=== PATIENT | male | born 1945 ===

== ENCOUNTER 2017-07-10 02:28 | Observation (INO) | payer OTHER ==
[2017-07-10] MEDS ORDERED: Albuterol/Ipratropium NEB.SOL* Albuterol 2.5 MG/Ipratropium 0.5 MG 3 ML INH ONE (02:33)
[2017-07-10] MEDS ORDERED: methylPREDNISolone 125 MG* 2 ML VIAL IV ONE (02:33)
[2017-07-10 03:07] LABS: PCO2 Arterial 36 mmHg (35-45)
[2017-07-10] MEDS ORDERED: Azithromycin IV(*) 500 MG in NS 0.9% 250 ML* 250 ML IVPB ONE (03:10)
[2017-07-10] MEDS ORDERED: cefTRIAXone(*) 1 GM in NS 0.9% 50 ML* 50 ML IVPB ONE (03:10)
[2017-07-10 03:30] LABS: Troponin I 0.03 ng/mL (<0.04)
[2017-07-10 03:34] LABS: ALT 16 U/L (7-52); Albumin 4.6 g/dL (3.2-5.2); Alkaline Phosphatase 75 U/L (34-104); Blood Urea Nitrogen 13 mg/dL (6-24); CO2 Carbon Dioxide 25 mmol/L (22-32); Calcium 9.7 mg/dL (8.6-10.3); Chloride 95 mmol/L (101-111); EGFR African American 120.1 (>60); EGFR Non-African American 93.4 (>60); Globulin 3.4 g/dL (2-4); Glucose 119 mg/dL (70-100); Magnesium 1.8 mg/dL (1.9-2.7); Sodium 131 mmol/L (133-145)
[2017-07-10 03:35] LABS: Anion Gap 11 mmol/L (2-11)
[2017-07-10] MEDS ORDERED: NS 0.9% 1000 ML* 1,000 ML IV SCH ×2 (04:15→09:15)
[2017-07-10 04:19] LABS: Hematocrit 36 % (42-52); Hemoglobin 12.5 g/dl (14.0-18.0); Mean Corpuscular HGB Conc 35 g/dl (31-36); Mean Corpuscular Hemoglobin 35 pg (27-31); Mean Corpuscular Volume 101 fL (80-94); Mean Platelet Volume 7 um3 (7.4-10.4); Red Cell Distribution Width 13 % (10.5-15); White Blood Count 6.4 10^3/ul (3.5-10.8)
[2017-07-10] MEDS ORDERED: Iohexol 350* (CONTRAST) 500 ML MDV IV ONE (04:30)
[2017-07-10] MEDS: NS 0.9% 1000 ML* 1,000 ML IV SCH ×2 (04:34→10:54)
--- NOTE | 2017-07-10 08:08 | RAD ---
HISTORY: Shortness of breath COMPARISONS: October 08, 2014 VIEWS: 1: frontal portable view of the chest at 2:47 AM FINDINGS: LINES AND TUBES: None. CARDIOMEDIASTINAL SILHOUETTE: The cardiomediastinal silhouette is normal for portable technique. PLEURA: The costophrenic angles are sharp. No pleural abnormalities are noted. LUNG PARENCHYMA: There is hyperinflation with advanced emphysematous change. ABDOMEN: The upper abdomen is clear. There is no subphrenic gas. BONES AND SOFT TISSUES: No bone or soft tissue abnormalities are noted. IMPRESSION: EMPHYSEMA. NO ACTIVE CARDIOPULMONARY DISEASE.
--- NOTE | 2017-07-10 08:27 | RAD ---
INDICATION: Difficulty breathing. Relevant surgical history includes left upper lobectomy. COMPARISON: None TECHNIQUE: Axial source images were acquired following the administration of 55 mL Omnipaque [address] angiographic technique. Coronal and sagittal reconstructed images were constructed and reviewed. FINDINGS: There there are no filling defects in the pulmonary arteries to indicate acute pulmonary embolic disease. The left lung is hypoplastic consistent with the patient's history of lobectomy. There is advanced diffuse centrilobular emphysematous changes. Along the dependent margin of the left lower lobe there is subpleural density with an appearance consistent with honeycombing. There is pleural-based density with air bronchograms along the lateral aspect of the right lung apex. There are no large or suspicious pulmonary nodules or masses. Reflux of intravenously injected contrast is seen in the hepatic veins indicating a degree of congestive heart failure. The heart is normal in size. There is no evidence of pericardial effusion. There is no evidence of aortic aneurysm or dissection. There is no mediastinal, hilar, or axillary lymphadenopathy. Multilevel degenerative changes of the thoracic spine includes loss of intervertebral disc height and marginal osteophyte formation. Limited views of the upper abdomen show no abnormalities. IMPRESSION: 1. No CT of evidence of pulmonary embolism. 2. Extensive chronic and postsurgical changes described in the body the report.
[2017-07-10] MEDS ORDERED: Al Hydrox/Mg Hydrox/Simet LIQ* 30 ML UDC PO PRN (09:14)
[2017-07-10] MEDS ORDERED: Ondansetron INJ* 2 MG/ML VIAL IV PRN (09:14)
[2017-07-10] MEDS ORDERED: Albuterol HFA INHALER* 8 gm MDI INH PRN (09:15)
[2017-07-10] MEDS ORDERED: Prochlorperazine TAB* 10 MG PO PRN (09:15)
[2017-07-10] MEDS ORDERED: cefTRIAXone(*) 1 GM in NS 0.9% 50 ML* 50 ML IVPB SCH (10:00)
[2017-07-10] MEDS: methylPREDNISolone SOD 40 MG* 1 ML VIAL IV SCH ×2 (10:54→21:22)
--- NOTE | 2017-07-10 13:43 | HP ---
CC: Dr. Palmer Friend; Radha Santillanhrie; Dr. Joann Quigley HISTORY AND PHYSICAL: DATE OF ADMISSION: 07/10/17 PRIMARY CARE PROVIDER: [facility]. The patient mentioned Estela Friend, nurse gertrudis sim from the practice as his PCP. The patient also has an oncologist named Dr. Joann Quigley from [place]. CHIEF COMPLAINT: Shortness of breath. HISTORY OF PRESENT ILLNESS: Mr. Barkley is a 71-year-old male who is currently undergoing chemothera py for throat cancer who presents to the hospital complaining of shortness of breath. The patient st ated that due to unknown infection diagnosed by his books binder, he had been on azithromycin for past year. He presents complaining of cough mostly nonproductive and shortness of breath. Now, he feels much better after Solu-Medrol infusion and nebulizer treatments here. He is going to be place d on overnight observation with a diagnosis of COPD exacerbation. PAST MEDICAL HISTORY: 1. COPD, on oxygen, when ambulating it is 2 L. 2. History of dyslipidemia. 3. History of hypertension. 4. History of throat cancer, status post radiation and chemo in 2015. Apparently, the tumor recurre d and now is encasing the right carotid artery. The patient currently is status post another radiati on treatment and undergoing another chemotherapy. 5. History of partial lumpectomy of the left upper lobe due to benign reasons. Further, the patient could not tell. 6. History of "a cyst" removed from his spine. MEDICATIONS: At home include: 1. Levothyroxine 50 mcg daily. 2. Xeloda 1000 mg b.i.d. 3. Spiriva inhaler 1 inhalation daily. 4. Zocor 20 mg daily. 5. Symbicort 160/4.5 one inhalation b.i.d. 6. Albuterol 2 puffs every 4 hours p.r.n. 7. Compazine 10 mg every 8 hours p.r.n. 8. Azithromycin 250 mg daily. 9. Albuterol inhaler 2.5 mg inhaled every 6 hours p.r.n. 10. Atenolol 50 mg daily. ALLERGIES: No known drug allergies. FAMILY HISTORY: The patient's mother had a history of throat cancer, at the age of 44. Father' s history is unknown. SOCIAL HISTORY: The patient has a history of [id number] smoking and quit smoking in 2009. He wilson es alcohol use. He is . His surrogate decision maker is his . He is independent with vt s activities of daily living. REVIEW OF SYSTEMS: Please see history of present illness. The patient stated that he lost 5 pounds in the past couple of months due to basically poor appetite. He has no problems with swallowing. He is on oxygen whenever he exercises. He told me that he had been on azithromycin for the past [address] Mccray's recommendation, but he could not tell me if he ever was diagnosed of an infection. All the remaining 12 systems were reviewed with the patient and were otherwise negative. PHYSICAL EXAMINATION GENERAL: This is a very pleasant 71-year-old male with a BMI of 17. The patient is in no acute dist ress. Alert, awake, and oriented x3. VITAL SIGNS: Blood pressure of 98/67, heart rate of 89 and regular, respiratory rate 20, oxygen satu ration 96% on room air, temperature 98.7. HEENT: Head: Atraumatic, normocephalic. Eyes: Pupils are equal, reactive to light and accommodati on. Oropharynx clear. Mucosa moist. NECK: Supple. No JVD. No bruits bilaterally. The patient has hardening of the skin and what appea rs to be a subcutaneous mass that is growing together with the skin at the right base of the neck. I t appears to be remnant after radiation treatment. RESPIRATORY: Coarse breath sounds bilaterally with bilateral scant wheezes. CARDIOVASCULAR: Regular rate and rhythm, no murmur. ABDOMEN: Soft, nontender. Bowel sounds are present in all 4 quadrants. EXTREMITIES: There is no edema. Pulses are +2 bilaterally. No clubbing or cyanosis. NEUROLOGIC: On neuro evaluation, speech is clear. Cranial nerves II through XII grossly intact. Mo tor strength is 5/5 bilaterally. LABORATORY DATA/DIAGNOSTIC STUDIES: Laboratory data and studies performed today include: CT angiogram of the chest obtained in the emergency department, impression: "No CT evidence of pulmo nary embolism. Extensive chronic postsurgical changes as described in the body of the report." Furt luke, it was noted that left lung is hyperplastic with the patient's history of lobectomy. There was advanced diffuse centrilobular emphysematous changes along with dependent margin of the left lowe r lobe. There is subpleural density with an appearance consistent with honeycombing. There is pleura l based density with air bronchograms around the lateral aspect of the right lung apex. There are no large suspicious pulmonary nodules or masses. Please also note that the report that was read by the [facility] radiologist noted 1.8 cm heterogenic right thyroid nodule, which is likely consistent with the patient's known malignancy. CBC showed white blood cell count 6.4, hemoglobin 12.5, hematocrit of 36, MCV of 101, and platelets o f 176,000. D-dimer was over 400. ABG shows pH of 7.4, pCO2 of 36, pO2 of 149, bicarb of 25. Sodium was 131, potassium of 3.5, chloride 95, carbon dioxide 25, BUN 13, creatinine 0.81. Liver fun ction tests were unremarkable. Magnesium was slightly low at 1.8. Troponin of 0.03. Lactic acid 1. 2. The patient's EKG showed sinus rhythm with heart rate of 189 beats per minute with PACs. The EKG is similar to the EKG from 2015, but the previous EKG had multiple PVCs. ASSESSMENT AND PLAN: 1. For chronic obstructive pulmonary disease exacerbation, the patient is going to be placed on Solu -Medrol as well as added ceftriaxone to his chronic azithromycin. 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 I will try to obt ain medical records from the patient's books binder. I suspect the patient will be able to go home in the morning on 07/11/17. 2. Please also note that the [facility] report of the patient's CT angiogram of the chest also noted air-fluid levels in the esophagus. The patient does have history of radiation to his throat. Due t o that, although the patient himself does not report history of problems with swallowing, I will orde r barium swallow. 3. The patient has a history of throat cancer and his Xeloda is going to be continued for chemothera py. 4. For DVT prophylaxis, the patient is going to be placed on heparin subcutaneously. 5. Code status is full and his surrogate is his . TIME SPENT: Approximately 62 minutes were spent on the patient's admission, more than half of that t sharon was spent [id number] with the patient doing the interview, physical exam. [id number]/CPS #: [id number]
[2017-07-10] MEDS: Albuterol 2.5 MG/3 ML NEB.SOL* (0.083%) INH PRN ×2 (15:13→21:31)
[2017-07-10] MEDS: Heparin VIAL(*) 5000 UNITS/ML VIAL (FIVE THOUSAND) SUBCUT SCH ×2 (15:36→21:26)
[2017-07-10] MEDS ORDERED: CAPECITABINE 500 MG PO SCH (17:00)
[2017-07-10] MEDS: CAPECITABINE 500 MG PO SCH (18:16)
--- NOTE | 2017-07-10 19:47 | ED ---
Sophie Canales Emily, scribed for Lamberto Carlson on 07/10/17 at 0247 . Shortness of Breath - HPI Summary HPI Summary: This patient is a 71 year old M BIBA to [facility] with a chief complaint of SOB that began 2 days ago. The patient rates the pain 3/10 in severity. Symptoms aggravated by nothing. Symptoms alleviated by nothing. Patient reports cough. Patient denies fever, CP, and leg edema. Pt is on 2 L of O2 at home. Pt currently has throat CA. - History of Current Complaint Chief Complaint: EDShortnessOfBreath Hx Obtained From: Patient Onset/Duration: Sudden Onset, Lasting Days, Still Present Current Severity: Mild Aggrevating Factors: Nothing Alleviating Factors: Nothing Associated Signs & Symptoms: Cough (Nonproductive) - Allergy/Home Medications Allergies/Adverse Reactions: Allergies Allergy/AdvReac Type Severity Reaction Status Date / Time No Known Allergies Allergy Verified 10/08/14 09:29 PMH/Surg Hx/FS Hx/Imm Hx Previously Healthy: No Cardiovascular History: Reports: Hx Hypercholesterolemia, Hx Hypertension Respiratory History: Reports: Hx Chronic Obstructive Pulmonary Disease (COPD) Sensory History: Reports: Hx Contacts or Glasses, Hx Hearing Problem - has hearing aids at home Opthamlomology History: Reports: Hx Contacts or Glasses - Surgical History Surgery Procedure, Year, and Place: left upper lobe lobectomy "3 years ago", cyst removed from spine Infectious Disease History: No Infectious Disease History: Denies: Traveled Outside the [place] in Last 30 Days - Family History Known Family History: Positive: None - Social History Occupation: Retired Lives: With Family Alcohol Use: None Substance Use Type: Reports: None Smoking Status (MU): Former Smoker Type: Cigarettes Amount Used/How Often: 1 ppd Review of Systems Negative: Fever Negative: Chest Pain Positive: Shortness Of Breath, Cough Negative: Edema All Other Systems Reviewed And Are Negative: Yes Physical Exam Triage Information Reviewed: Yes Vital Signs On Initial Exam: Initial Vitals Temp Pulse Resp BP Pulse Ox 99.2 F 88 20 143/79 100 07/10/17 02:37 07/10/17 02:37 07/10/17 02:37 07/10/17 02:37 07/10/17 02:37 Vital Signs Reviewed: Yes Appearance: Positive: Well-Appearing, No Pain Distress Skin: Positive: Warm, Skin Color Reflects Adequate Perfusion, Dry Head/Face: Positive: Normal Head/Face Inspection Eyes: Positive: EOMI, INÉS ENT: Positive: Normal ENT inspection Neck: Positive: Supple, Nontender Respiratory/Lung Sounds: Positive: Breath Sounds Present, Rhonchi - Bilateral Cardiovascular: Positive: RRR, Pulses are Symmetrical in both Upper and Lower Extremities Abdomen Description: Positive: Nontender, Soft Bowel Sounds: Positive: Present Musculoskeletal: Positive: Normal, Strength/ROM Intact Neurological: Positive: Normal, Sensory/Motor Intact, Alert, Oriented to Person Place, Time Psychiatric: Positive: Affect/Mood Appropriate Diagnostics - Vital Signs Vital Signs Temp Pulse Resp BP Pulse Ox 07/10/17 02:37 99.2 F 88 20 143/79 100 - Laboratory Result Diagrams: 07/10/17 03:53 07/10/17 03:53 Lab Statement: Any lab studies that have been ordered have been reviewed, and results considered in the medical decision making process. - Radiology CXR Radiology Interpretation Completed By: ED Physician - CXR reveals R lower lobe pneumonia and L lower lobe pneumonia with effusion. - CT CTA Chest CT Interpretation Completed By: Radiologist - CT CTA chest reveals, per radiologist, nodular scarring right upper and right lower lobes, advise follow up. Heterogeneous thyroid gland containing a 1.8 cm hypodense nodule in right lobe, correlate with ultrasound. No pulmonary embolism. No aortic dissection or aneurysm. No pneumonia or pleural effusions. Air and fluid in md/upper esophagus. Coronary artery disease. Cachexia. ED physician has reviewed this radiology report. Course/Dx - Course Assessment/Plan: This patient is a 71 year old M BIBA to [facility] with a chief complaint of SOB that began 2 days ago. Pt currently has throat CA. Physical Exam Findings. Bilateral rhonchi. CXR reveals R lower lobe pneumonia and L lower lobe pneumonia with effusion. CT CTA chest reveals, per radiologist, nodular scarring right upper and right lower lobes, advise follow up. Heterogeneous thyroid gland containing a 1.8 cm hypodense nodule in right lobe, correlate with ultrasound. No pulmonary embolism. No aortic dissection or aneurysm. No pneumonia or pleural effusions. Air and fluid in md/upper esophagus. Coronary artery disease. Cachexia. Bloodwork obtained. In the ED course the patient was given Duoneb, Omnipaque, Solu-MEDROL, fluids, Rocephin, and Zithromax. We discussed patient care with Dr. Kaiser and they recommended pt be admitted for further evaluation. The patient is agreeable with this plan. - Diagnoses Provider Diagnoses: COPD exacerbation - Physician Notifications Discussed Care of Patient With: Barbara Kaiser Time Discussed With Above Provider: 06:49 Instructed by Provider To: Other - Consult with Dr. Kaiser (hospitalist) at 0649. Agrees to admit pt for further observation. Discharge - Discharge Plan Condition: Stable Disposition: ADMITTED TO [facility] Referrals: No Primary Care Phys,NOPCP [Primary Care Provider] - The documentation as recorded by the Sophie head Emily accurately reflects the service I personally performed and the decisions made by , Lamberto Carlson.
[2017-07-11] MEDS: NS 0.9% 1000 ML* 1,000 ML IV SCH (04:07)
[2017-07-11] MEDS: Heparin VIAL(*) 5000 UNITS/ML VIAL (FIVE THOUSAND) SUBCUT SCH ×2 (05:54→13:50)
[2017-07-11] MEDS ORDERED: Levothyroxine TAB* 50 MCG TAB PO SCH (06:00)
[2017-07-11] MEDS: Albuterol 2.5 MG/3 ML NEB.SOL* (0.083%) INH PRN ×2 (06:06→14:21)
[2017-07-11 07:19] LABS: Hematocrit 30 % (42-52); Hemoglobin 10.7 g/dl (14.0-18.0); Mean Corpuscular HGB Conc 35 g/dl (31-36); Mean Corpuscular Hemoglobin 35 pg (27-31); Mean Corpuscular Volume 100 fL (80-94); Mean Platelet Volume 7 um3 (7.4-10.4); Red Blood Count 3.03 10^6/ul (4.0-5.4); Red Cell Distribution Width 13 % (10.5-15); White Blood Count 9.4 10^3/ul (3.5-10.8)
[2017-07-11 07:48] LABS: BUN/Creatinine Ratio 25.4 (8-20); Calcium 7.9 mg/dL (8.6-10.3); EGFR African American 173.2 (>60); EGFR Non-African American 134.7 (>60); Potassium 3.5 mmol/L (3.5-5.0)
[2017-07-11] MEDS: CAPECITABINE 500 MG PO SCH ×2 (08:44→11:49)
[2017-07-11] MEDS: Atenolol TAB* 50 MG PO SCH ×2 (08:44→15:28)
[2017-07-11] MEDS ORDERED: Spiriva Inhaler DEVICE* 1 EACH DEVICE INH ONE (09:00)
[2017-07-11] MEDS ORDERED: Tiotropium CAP.INH* CAP.INH/18 MCG (USE ORDER SET !) INH SCH (09:00)
[2017-07-11] MEDS ORDERED: Azithromycin TAB* 250 MG PO SCH (09:00)
[2017-07-11] MEDS ORDERED: cefTRIAXone(*) 1 GM in D5W 50 ML BAG* 50 ML IVPB SCH (10:00)
[2017-07-11] MEDS: methylPREDNISolone SOD 40 MG* 1 ML VIAL IV SCH (10:22)
--- NOTE | 2017-07-11 12:03 | RAD ---
HISTORY: Throat cancer, air fluid level and esophagus COMPARISONS: CT dated July 10, 2017 TECHNIQUE: A videofluoroscopic evaluation of swallow was performed in conjunction with speech therapy. Barium laced foods and liquids of varying consistency were administered under fluoroscopic observation. Total fluoroscopy time is 1.3 minutes. FINDINGS: ORAL PHASE: There is normal transfer and initiation PHARYNGEAL PHASE: There is normal elevation and retropulsion. There is blunting of the epiglottis consistent with a history of radiation therapy. ASPIRATION/PENETRATION: There is transient penetration with thin liquid barium on one swallow. There is no aspiration. OTHER FINDINGS: None. IMPRESSION: EVIDENCE OF PREVIOUS RADIATION THERAPY. TRANSIENT PENETRATION WITHOUT ASPIRATION.. PLEASE SEE THE SPEECH THERAPIST REPORT FOR FURTHER INFORMATION CPT II Codes: 6045F
[2017-07-11 16:57] VITALS: BP 106/62
--- NOTE | 2017-07-12 10:57 | DS ---
CC: Dr. Mccray; Dr. Joann Quigley; Estela Desir MD * DISCHARGE SUMMARY: DATE OF ADMISSION: 07/10/17 DATE OF DISCHARGE: 07/11/17 PRIMARY CARE PROVIDER: Estela Desir MD. SWEATER OPERATOR: Dr. Mccray. ONCOLOGIST: Dr. Joann Quigley. All the above providers are from [facility]. DISCHARGE DIAGNOSIS: Chronic obstructive pulmonary disease exacerbation. SECONDARY DIAGNOSES: 1. History of chronic obstructive pulmonary disease, on oxygen p.r.n. 2. Dyslipidemia. 3. History of hypertension. 4. History of throat cancer, status post radiation and chemo in 2016. Status post recurrence of tumor. Now the tumor is encasing the right carotid artery. The patient is status post radiation treatment and undergoing chemotherapy. 5. History of partial lobectomy of the left upper lobe due to a mass that turned out to have AFB testing positive on the nodule, but apparently cultures never grew anything. 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 6. History of a cyst removed from his spine. MEDICATIONS AT DISCHARGE: Include: 1. Levothyroxine 50 mcg daily. 2. Xeloda 1000 mg b.i.d. 3. Spiriva inhaler 1 inhalation daily. 4. Zocor 20 mg daily. 5. Symbicort 160/4.5, 1 inhalation b.i.d. 6. Albuterol on a p.r.n. basis. 7. Compazine 10 mg every 8 hours p.r.n. 8. Azithromycin 250 mg daily. 9. Atenolol 50 mg daily. 10. The patient also started on prednisone at 50 mg daily for a total of 4 days and then stop. 11. Cefdinir 300 mg b.i.d. for a total of 6 days and then stop. LABORATORY DATA/DIAGNOSTIC STUDIES: Laboratory data and studies performed during the hospital stay include: On 07/09/17, white blood cell count of 9.4, hemoglobin 10.7, hematocrit 30, and platelets 158,000. Sodium was 133, potassium 3.5, chloride 101, carbon dioxide 26, BUN 15, creatinine 0.59. Due to initial report on the patient's CT angiogram that there was an air-fluid level in the patient's esophagus, a video barium swallow was obtained which showed, impression: "Evidence of previous radiation therapy. Transient penetration without aspiration." The patient was advised by Speech Therapy to continue regular solids and thin liquids, but to sit upright and take small sips and bites and extra swallows. The patient also was recommended to continue to alternate liquids and solids and be up for 30 minutes after eating. Prior to discharge, due to the swallow evaluation, the patient's atenolol was held on the day of discharge. The patient had a nebulizer treatment prior to discharge and developed an episode of shortness of breath with heart rate of 160s. By the time the patient was placed on conveyor monitor, the patient was back to sinus tachycardia with a heart rate of 100 per minute. I suspect the patient had a burst of SVT. The patient's atenolol was restarted prior to discharge and the patient was discharged in stable condition back home. 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 PHYSICAL EXAMINATION: On the day of discharge includes: Vital Signs: Blood pressure of 106/62, heart rate of 91 and regular, respiratory rate 20, oxygen saturation 96% on 2 L of oxygen nasal cannula, temperature 98.0. General: The patient is a pleasant 71-year-old male who is in no acute distress. Alert, awake, and oriented x3. HEENT: Head: Atraumatic , normocephalic. Eyes: Pupils are equal and reactive to light and accommodation. Oropharynx clear. Mucosa moist. Neck with post-radiation hardening of the skin of the neck, especially on the right side with palpable subcutaneous abnormality and hardening right above his right clavicle area. Respiratory: Coarse breath sounds bilaterally with scant wheezes. Cardiovascular: Regular rate and rhythm. No murmur. Abdomen is soft, nontender. Bowel sounds are present in all 4 quadrants. Extremities: There is no edema. Pulses are +2 bilaterally. No clubbing or cyanosis. Please note that this is a short summary of the patient's hospital stay. Please refer to further medical records for details. TIME SPENT: Approximately 45 minutes was spent on the patient's discharge. [id number]/CPS #: [id number] MTDD
== END 2017-07-11 17:00 | disposition home or self-care (01) ==
LOC: ED 02:28 → MED 09:13
PROVIDERS: ADMIT Internal Medicine; ATTEND Internal Medicine
DX: J44.1 Chronic obstructive pulmonary disease with (acute) exacerbation (principal); E78.5 Hyperlipidemia, unspecified; I10 Essential (primary) hypertension; Z87.891 Personal history of nicotine dependence; C14.0 Malignant neoplasm of pharynx, unspecified; I25.10 Atherosclerotic heart disease of native coronary artery without angina pectoris; R64 Cachexia; R91.1 Solitary pulmonary nodule; Z79.899 Other long term (current) drug therapy; R06.02 Shortness of breath; R05 Cough
CPT/HCPCS: 36415; 71010; 71275; 74230; 80048; 80053; 82803; 83605; 83735; 83880; 84484; 85025; 85379; 85610; 85730; 87040; 93005; 94640; 94760; 96374; 96375; 99285; A9270-GY; G0378; G8996-GN-CH; G8997-GN-CH; G8998-GN-CH; J0456; J0696; J1644; J2405; J2920; J2930; Q0164; Q9967

== ENCOUNTER 2017-07-15 06:11 | Inpatient (IN) | payer OTHER ==
[2017-07-15] MEDS ORDERED: Albuterol/Ipratropium NEB.SOL* Albuterol 2.5 MG/Ipratropium 0.5 MG 3 ML INH ONE (06:23)
[2017-07-15] MEDS ORDERED: Albuterol 2.5 MG/3 ML NEB.SOL* (0.083%) INH ONE (06:23)
[2017-07-15] MEDS ORDERED: methylPREDNISolone 125 MG* 2 ML VIAL IV ONE (06:23)
[2017-07-15] MEDS ORDERED: NS 0.9% 1000 ML* 1,000 ML IV ONE ×2 (06:24→08:29)
[2017-07-15] MEDS ORDERED: Magnesium Sulfate 2 GM IV* 2 GM/50 ML BAG IVPB ONE (06:26)
--- NOTE | 2017-07-15 06:54 | ED ---
Rolando Canales Thomas scribed for Bailey Nunes MD on 07/15/17 at 0622 . Shortness of Breath - HPI Summary HPI Summary: The patient is a 71 year old male with a history of COPD and esophageal cancer brought in by ambulance and complaining of difficulty breathing that began three days ago and has been progressively worsening. Patient complains of difficulty swallowing. He has been unable to eat or take liquids normally secondary to the difficulty swallowing. He has not been choking. He has been losing weight. Patient denies fever and vomiting. He is on home oxygen. The patient was recently admitted to [facility] on 07/10/17 and discharged on 07/12/17. His oncologist is Dr. Quigley. - History of Current Complaint Time Seen by Provider: 07/15/17 06:13 Hx Obtained From: Patient Onset/Duration: Lasting Days - 3, Still Present, Worse Since - progressively Timing: Constant Dyspnea At: Rest Aggrevating Factors: Nothing Alleviating Factors: Nothing - Allergy/Home Medications Allergies/Adverse Reactions: Allergies Allergy/AdvReac Type Severity Reaction Status Date / Time No Known Allergies Allergy Verified 07/15/17 06:24 PMH/Surg Hx/FS Hx/Imm Hx Previously Healthy: No Endocrine/Hematology History: Denies: Hx Diabetes Cardiovascular History: Reports: Hx Hypercholesterolemia, Hx Hypertension Respiratory History: Reports: Hx Chronic Obstructive Pulmonary Disease (COPD), Other Respiratory Problems/Disorders - lobectomy History: Denies: Hx Dialysis, Hx Renal Disease Musculoskeletal History: Reports: Other Musculoskeletal History - dislocated hip Sensory History: Reports: Hx Contacts or Glasses, Hx Hearing Problem - has hearing aids at home Denies: Hx Hearing Aid - @ home Opthamlomology History: Reports: Hx Contacts or Glasses - Surgical History Surgery Procedure, Year, and Place: left upper lobe lobectomy "3 years ago", cyst removed from spine Infectious Disease History: No Infectious Disease History: Denies: Hx Clostridium Difficile, Hx Hepatitis, Hx Human Immunodeficiency Virus (HIV), Hx of Known/Suspected MRSA, Traveled Outside the [place] in Last 30 Days - Family History Known Family History: Positive: Other - Patient denies relevant FHx - Social History Lives: With Family Alcohol Use: None Substance Use Type: Reports: None Hx Tobacco Use: Yes Smoking Status (MU): Former Smoker Type: Cigarettes Amount Used/How Often: 1 ppd Review of Systems Negative: Fever Positive: Other - difficulty swallowing Positive: Other - Difficulty breathing Negative: Vomiting All Other Systems Reviewed And Are Negative: Yes Physical Exam - Summary Physical Exam Summary: VITAL SIGNS: Reviewed. GENERAL: Patient is a cachectic and ill-appearing male who is lying comfortable in the stretcher. Patient is not in any acute respiratory distress. HEAD AND FACE: No signs of trauma. No ecchymosis, hematomas or skull depressions. No sinus tenderness. EYES: PERRLA, EOMI x 2, No injected conjunctiva, no nystagmus. EARS: Hearing grossly intact. Ear canals and tympanic membranes are within normal limits. MOUTH: Oropharynx within normal limits. He has dry mucous membranes. NECK: Supple, trachea is midline, no adenopathy, no JVD, no carotid bruit, no c- spine tenderness, neck with full ROM. CHEST: Symmetric, no tenderness at palpation. He has a barrel chest. LUNGS: Decreased breath sounds bilaterally. CVS: Regular rate and rhythm, S1 and S2 present, no murmurs or gallops appreciated. ABDOMEN: Soft, non-tender. No signs of distention. No rebound no guarding, and no masses palpated. Bowel sounds are normal. EXTREMITIES: FROM in all major joints, no edema, no cyanosis or clubbing. NEURO: Alert and oriented x 3. No acute neurological deficits. Speech is normal and follows commands. SKIN: Dry and warm Triage Information Reviewed: Yes Vital Signs On Initial Exam: Initial Vitals Temp Pulse Resp BP Pulse Ox 97.9 F 90 24 156/89 99 07/15/17 06:11 07/15/17 06:11 07/15/17 06:11 07/15/17 06:11 07/15/17 06:11 Vital Signs Reviewed: Yes Diagnostics - Vital Signs Vital Signs Temp Pulse Resp BP Pulse Ox 07/15/17 06:11 97.9 F 90 24 156/89 99 - Laboratory Lab Statement: Any lab studies that have been ordered have been reviewed, and results considered in the medical decision making process. - Radiology CXR Xray Interpretation: No Acute Changes - Hyperinflation with no acute disease. Radiology Interpretation Completed By: ED Physician - EKG 06:15 Cardiac Rate: NL EKG Rhythm: Sinus Rhythm - at 91 BPM Ectopy: PVCs EKG Interpretation: LVH, right axis deviation, and no acute ischemic change. Course/Dx - Course Assessment/Plan: The patient is a 71 year old male with a history of COPD and esophageal cancer brought in by ambulance and complaining of difficulty breathing that began three days ago. He also complains of difficulty swallowing. He is cachectic and ill-looking. He has a Barrel chest and decreased breath sounds bilaterally. He has dry mucous membranes. In the ED course the patient was given Ventolin, Duoneb, magnesium sulfate, Solu-Medrol, and IV fluids. Bloodwork is ordered. CXR shows hyperinflation with no acute disease. EKG shows sinus rhythm at 91 BPM, PVCs, LVH, right axis deviation, and no acute ischemic change. The patient is diagnosed with COPD, dehydration, dysphagia. The patient will be signed out to Dr. Lira pending labs and re- evaluation, awaiting disposition. - Diagnoses Provider Diagnoses: COPD (chronic obstructive pulmonary disease), Dehydration, Dysphagia Discharge - Discharge Plan Condition: Stable Disposition: OTHER Discharge Disposition Comment: Sign out to Dr. Lira at shift change, pending labs/re-eval. Referrals: No Primary Care Phys,NOPCP [Primary Care Provider] - The documentation as recorded by the Rolando head Thomas accurately reflects the service I personally performed and the decisions made by me, Bailey Nunes MD.
[2017-07-15 06:55] LABS: ABS Basophils 0 10^3/ul (0-0.2); ABS Eosinophils 0 10^3/ul (0-0.6); ABS Lymphocytes 0.4 10^3/ul (1.0-4.8); ABS Monocytes 0.5 10^3/ul (0-0.8); ABS Neutrophils 6.3 10^3/ul (1.5-7.7); ABS Nucleated RBC 0 10^3/ul; Eosinophil % 0.2 % (0-6); Hematocrit 41 % (42-52); Hemoglobin 14.1 g/dl (14.0-18.0); Lymphocyte % 6.2 % (25-47); Mean Corpuscular HGB Conc 35 g/dl (31-36); Mean Corpuscular Hemoglobin 35 pg (27-31); Mean Corpuscular Volume 100 fL (80-94); Mean Platelet Volume 7 um3 (7.4-10.4); Nucleated Red Blood Cells % 0.1; Platelet Count 252 10^3/ul (150-450); Red Blood Count 4.05 10^6/ul (4.0-5.4); Red Cell Distribution Width 14 % (10.5-15); White Blood Count 7.2 10^3/ul (3.5-10.8)
--- NOTE | 2017-07-15 08:18 | RAD ---
Indication: Shortness of breath. Single frontal view of the chest performed at 0634 hours was reviewed. Comparison is made with previous exam dated July 10, 2017. Hyperinflated lung flores are noted. Chronic pleural changes are noted. No alveolar consolidation is noted. IMPRESSION: HYPERINFLATED LUNG FLORES CONSISTENT WITH COPD AND CHRONIC INTERSTITIAL DISEASE. NO CHANGES NOTED SINCE JULY 10, 2017.
[2017-07-15] MEDS ORDERED: Enoxaparin(*) 40 MG/0.4 ML SYR SUBCUT SCH (09:00)
[2017-07-15] MEDS: Enoxaparin(*) 30 MG/0.3 ML SYR SUBCUT SCH (11:18)
[2017-07-15] MEDS ORDERED: Prochlorperazine TAB* 10 MG PO PRN (11:47)
[2017-07-15] MEDS: D5W 1/2 NS KCl 20 Meq 1000 ML* 1,000 ML IV SCH (13:04)
[2017-07-15 14:53] LABS: Urine Appearance Clear; Urine Blood Negative (Negative); Urine Color Yellow; Urine Ketones 1+ (Negative); Urine Protein Negative (Negative); Urine Specific Gravity 1.016 (1.010-1.030); Urine Urobilinogen Negative (Negative)
--- NOTE | 2017-07-15 14:56 | RAD ---
INDICATION: History of throat tumor. Difficulty swallowing. COMPARISON: July 10, 2017 CT and July 11, 2017 video swallowing function exam. TECHNIQUE: Following ingestion of effervescent granules the patient swallowed barium under fluoroscopic observation in standing position. Multiple spot images of the esophagus were obtained. 0.5 minutes fluoroscopy. FINDINGS: Assessment of esophageal peristalsis is limited due to tolerance for only a small volume of liquid barium swallows. Nonetheless no obstructing lesion to distal propagation of liquid barium evident. The esophagus is patulous above the level of the impression of the aortic arch along the LEFT margin of the esophagus. No gross abnormality of the esophageal mucosal pattern. No intrinsic esophageal lesions evident. No observed gastroesophageal reflux or hiatal hernia. IMPRESSION: Limited esophagram without gross evidence for presence of an intrinsic mucosal lesion of the esophagus or esophagitis. CPT II: CPT II Codes: 6045F
--- NOTE | 2017-07-15 15:21 | HP ---
CC: Dr. Estela Desir, Dr. Joann Quigley, Shelton Sanders. * HOSPITAL MEDICINE HISTORY AND PHYSICAL: DATE OF ADMISSION: 07/15/17 PRIMARY CARE PROVIDER: Dr. Estela Desir. ONCOLOGIST: Dr. Joann Quigley. ATTENDING PROVIDER: Mio Williamson MD* (DICTATED BY KEVIN ADAMS NP) CHIEF COMPLAINT: Weakness and shortness of breath. HISTORY OF PRESENT ILLNESS: Mr. 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 Mr. Barkley was admitted to our hospital from 07/10/17 through 07/11/17 with concern for shortness of breath. At that time, he was suspected to have a COPD exacerbation. De recovered and was discharged to home on prednisone and cefdinir treatment. Patient states that since returning home, he has continued to feel short of breath and has become weaker. He feels that he is having increased difficulty swallowing related to his recurrent throat cancer and history of radiation. During the last hospitalization, he did have a video fluoroscopic swallow study. I refer you to that report for complete details, but this showed that he was tolerating regular solids and thin liquids at that time. Patient states he has a very difficult time swallowing and at times he will regurgitate liquids that he seems to have not swallowed. He feels that this is steadily getting worse. He thinks that he lost about 6 pounds in the past 2 weeks since he last saw his oncologist. He is continuing to undergo chemotherapy and the last dose was yesterday, 07/14/17. He denies any fever or chills. He has had intermittent cough but states that even coughing is difficult because he feels so, "dry." He has had no nausea, vomiting, or diarrhea. His last bowel movement was yesterday. He has no abdominal pain. He has no skin breakdown or rashes. In the emergency room, Mr. Barkley is currently requiring 4 L nasal cannula to maintain O2 saturation greater than 95%. His labs show his BUN and creatinine are slightly up from last admission but was within normal limits. His CRP is 20.20. His chest x-ray shows no change from previous with chronic interstitial changes and COPD. PAST MEDICAL HISTORY: 1. Throat cancer, status post radiation and chemotherapy 2015, now with recurrence of tumor which is encasing the right carotid artery. Patient is undergoing chemotherapy. 2. History of COPD, now on 2 L nasal cannula. 3. Dyslipidemia. 4. Hypertension. 5. Partial lobectomy of the left upper lobe, finding of atypical mycobacterium infection, chronically treated with azithromycin. 6. History of cyst removal to the spine. MEDICATIONS: 1. Levothyroxine 50 micrograms p.o. daily. 2. Xeloda 1000 mg b.i.d. 3. Spiriva inhaler 1 inhalation daily. 4. Zocor 20 mg daily. 5. Symbicort 160/4.5 one inhalation b.i.d. 6. Albuterol p.r.n. 7. Compazine 10 mg p.r.n. 8. Azithromycin 250 mg p.o. daily. 9. Atenolol 50 mg p.o. daily. 10. Prednisone 50 mg p.o. daily. 11. Cefdinir 300 mg p.o. b.i.d. Last dose would be the 07/17/17. FAMILY HISTORY: Per the history, patient's mother had a history of throat cancer and at age 44. Father's history is unknown. SOCIAL HISTORY: Patient has a history of 50-pack year smoking. Quit in 2009. He denies any alcohol or drug use. He is and lives with his , who is the healthcare proxy. REVIEW OF SYSTEMS: A 14-point review of systems was completed with Mr. Barkley and all those not mentioned above were negative. PHYSICAL EXAMINATION GENERAL: Mr. Barkley is lying in the bed. He is a cachectic male, but in no acute distress. VITAL SIGNS: Temperature 97.6, pulse rate 91 respiratory rate 18, O2 saturation 100% on 4 L nasal cannula, blood pressure 131/76. HEENT: Head normocephalic, pupils equal and reactive, throat with firm mass to right lateral neck, no oropharyngeal swelling or exudate present LUNGS: Coarse rhonchi bilaterally throughout all lung lafleur. No wheezing is appreciated today. HEART: S1 and S2. No murmur, gallop and regular. EXTREMITIES: No cyanosis or edema. NEUROLOGIC: He is alert, he is oriented x3. He moves all extremities equally. There is no facial asymmetry or focal weakness. Extraocular movements are intact. SKIN: Intact. LABORATORY DATA: Sodium 136, potassium 3.9, chloride 95, serum bicarbonate 34 , BUN 21, creatinine 0.72, glucose 124, CRP 20.20. WBC is 7.3, hemoglobin 14.1 , hematocrit 41, platelet count 252. Chest x-ray was read follows, "hyperinflated lung lafleur consistent with COPD and chronic interstitial disease. No changes noted since 07/10/17." ASSESSMENT: Mr. Barkley is a 71-year-old male with a past medical history of throat cancer, now with recurrence of throat cancer currently undergoing chemotherapy as well as COPD, who presents today to hospital with concern for shortness of breath and weakness. Our recommendations are for observation in the hospital for the followin. Shortness of breath: Patient's chest x-ray is unchanged. He has a normal white blood cell count and no fever. I do not suspect pneumonia at this time given his unchanged chest xray and his normal WBC without fever; however, I am concerned that given his persistent O2 requirements and his rising sodium bicarbonate that he may be having ongoing exacerbation, plan to treat with Solu- Medrol for now and continue his cefdinir and azithromycin. 2. Weakness and difficulty swallowing: I suspect the patient is somewhat dehydrated and we will provide IV fluids. Plan to recheck all of his labs in the morning. Patient will have an esophageal xray with barium today to assess esophageal function and any possible obstruction that may not have been captured on the video fluorscopic study. Patient has had a feeding tube in the past and would be amenable to placement of another feeding tube if need be. It is his understanding that there is hope that his throat tumor will shrink and that he will again be able swallow in the future. 3. Hypertension: Continue atenolol. 4. Hypothyroidism: Continue levothyroxine. 5. Hyperlipidemia: Continue simvastatin. 6. Code status: DNR/DNI and a MOLST form was completed with the patient. 7. DVT prophylaxis with Lovenox daily. TIME SPENT: Approximately 60 minutes was spent on the admission of this patient , more than half that time spent with the patient at bedside reviewing the events leading up to this hospitalization, performing the physical examination , and reviewing my plan of care. KEVIN ADAMS POLICY ADVISOR [id number]/[facility] #: [id number] DAVID
--- NOTE | 2017-07-15 18:23 | ED ---
Lanny Canales Abhishek, scribed for Pieter Lria MD on 07/15/17 at 0843 . Course/Dx - Course Course Of Treatment: ADMIT HOSPITALIST - Diagnoses Provider Diagnoses: COPD (chronic obstructive pulmonary disease), Dehydration, Dysphagia Progress (inactive) - Progress Note Progress Note: Pt was a sign out from Dr. Nunes and was reevaluated. Pt has thin pale oral mucosa (dry). his lungs have occasional rhonchi and may have possible tachycardia. Hypoactive BM sounds are present and pt also has a nontender abd; no edema. The documentation as recorded by the Lanny head Abhishek accurately reflects the service I personally performed and the decisions made by Pankaj edwards William, MD.
[2017-07-15] MEDS: Albuterol 2.5 MG/3 ML NEB.SOL* (0.083%) INH PRN (20:30)
[2017-07-15] MEDS: methylPREDNISolone SOD 40 MG* 1 ML VIAL IV SCH (20:35)
[2017-07-15] MEDS: CMCS:Cefdinir cap (NF) 300 MG CAP PO SCH (20:46)
[2017-07-15] MEDS ORDERED: Ketorolac INJ* 30 MG/ML 1 ML VIAL IV PUSH ONE (22:14)
[2017-07-16] MEDS: D5W 1/2 NS KCl 20 Meq 1000 ML* 1,000 ML IV SCH ×3 (01:51→19:45)
[2017-07-16] MEDS: methylPREDNISolone SOD 40 MG* 1 ML VIAL IV SCH ×3 (05:11→20:10)
[2017-07-16] MEDS: Levothyroxine TAB* 50 MCG TAB PO SCH (05:11)
[2017-07-16 06:44] LABS: ABS Basophils 0 10^3/ul (0-0.2); ABS Eosinophils 0 10^3/ul (0-0.6); ABS Lymphocytes 0.2 10^3/ul (1.0-4.8); ABS Monocytes 0.2 10^3/ul (0-0.8); ABS Nucleated RBC 0.01 10^3/ul; Eosinophil % 0 % (0-6); Hematocrit 35 % (42-52); Hemoglobin 12.1 g/dl (14.0-18.0); Lymphocyte % 3.4 % (25-47); Mean Corpuscular HGB Conc 35 g/dl (31-36); Mean Corpuscular Hemoglobin 35 pg (27-31); Mean Corpuscular Volume 99 fL (80-94); Mean Platelet Volume 7 um3 (7.4-10.4); Nucleated Red Blood Cells % 0.1; Platelet Count 231 10^3/ul (150-450); Red Blood Count 3.47 10^6/ul (4.0-5.4); Red Cell Distribution Width 14 % (10.5-15); White Blood Count 6.4 10^3/ul (3.5-10.8)
[2017-07-16] MEDS ORDERED: Spiriva Inhaler DEVICE* 1 EACH DEVICE INH ONE (09:00)
[2017-07-16] MEDS ORDERED: Azithromycin TAB* 250 MG PO SCH (09:00)
[2017-07-16] MEDS: Atorvastatin* 10 MG TAB PO SCH (09:18)
[2017-07-16] MEDS: Atenolol TAB* 25 MG PO SCH (09:18)
[2017-07-16] MEDS: CMCS:Cefdinir cap (NF) 300 MG CAP PO SCH (09:19)
[2017-07-16] MEDS: Albuterol 2.5 MG/3 ML NEB.SOL* (0.083%) INH PRN ×2 (09:43→18:33)
[2017-07-16] MEDS: Tiotropium CAP.INH* CAP.INH/18 MCG (USE ORDER SET !) INH SCH (11:35)
[2017-07-16] MEDS: Ketorolac INJ* 15 MG/ML 1 ML VIAL IV PUSH PRN ×2 (11:49→18:27)
[2017-07-16] MEDS: Enoxaparin(*) 30 MG/0.3 ML SYR SUBCUT SCH (11:51)
--- NOTE | 2017-07-16 14:24 | PN ---
Subjective Date of Service: 07/16/17 Interval History: Pt is feeling poorly. He states despite the normal video fluoroscopic swallow study this past Friday, he feels that his swallowing ability has continued to decline. He states he can not even swallow water at this time as he feels it gets stuck high up in his throat. He also c/o pain in his throat. Family History: Unchanged from Admission Social History: Unchanged from Admission Past Medical History: Unchanged from Admission Objective Active Medications: Albuterol (Ventolin 2.5 Mg/3 Ml Neb.Celina*) 2.5 mg INH Q6H PRN PRN Reason: SHORTNESS OF BREATH Last Admin: 07/16/17 09:43 Dose: 2.5 mg Atenolol (Tenormin Tab*) 50 mg PO DAILY [facility] Last Admin: 07/16/17 09:18 Dose: Not Given Atorvastatin Calcium (Lipitor*) 10 mg PO DAILY [facility] Last Admin: 07/16/17 09:18 Dose: Not Given Azithromycin (Zithromax Tab*) 250 mg PO DAILY [facility] Last Admin: 07/16/17 09:19 Dose: Not Given Cefdinir (Cefdinir Cap (Nf)) 300 mg PO BID [facility] Stop: 07/21/17 21:00 Last Admin: 07/16/17 09:19 Dose: Not Given Enoxaparin Sodium (Lovenox(*)) 30 mg SUBCUT Q24H [facility] Last Admin: 07/16/17 11:51 Dose: 30 mg Potassium Chloride/Dextrose (D5w 1/2 Ns Kcl 20 Meq 1000 Ml*) 1,000 mls @ 125 mls/hr IV PER RATE [facility] Last Admin: 07/16/17 10:02 Dose: 125 mls/hr Ketorolac Tromethamine (Toradol Inj*) 15 mg IV PUSH Q6H PRN PRN Reason: PAIN Last Admin: 07/16/17 11:49 Dose: 15 mg Levothyroxine Sodium (Synthroid Tab*) 50 mcg PO 0600 [facility] Last Admin: 07/16/17 05:11 Dose: 50 mcg Methylprednisolone Sodium Succinate (Solu-Medrol 40 Mg) 40 mg IV Q8H [facility] Last Admin: 07/16/17 13:37 Dose: 40 mg Prochlorperazine (Compazine Tab*) 10 mg PO Q4HR PRN PRN Reason: NAUSEA Tiotropium Gardiner (Spiriva Cap.Inh*) 1 cap INH DAILY [facility] Last Admin: 07/16/17 11:35 Dose: 1 cap Vital Signs - 8 hr 07/16/17 07/16/17 07/16/17 07:23 11:35 11:44 Temperature 97.4 F 97.5 F Pulse Rate 75 80 71 Respiratory 20 18 Rate Blood Pressure 147/74 104/63 (mmHg) O2 Sat by Pulse 99 98 Oximetry Oxygen Devices in Use Now: Nasal Cannula - 2L Appearance: Elderly cachectic male sitting up in bed, NAD Eyes: No Scleral Icterus Ears/Nose/Mouth/Throat: Mucous Membranes Moist Respiratory: Symmetrical Chest Expansion and Respiratory Effort, Clear to Auscultation - diminished breath sounds in all lung lafleur Cardiovascular: NL Sounds; No Murmurs; No JVD, RRR, No Edema Abdominal: NL Sounds; No Tenderness; No Distention Extremities: No Clubbing, Cyanosis Skin: No Rash or Ulcers, No Nodules or Sclerosis Neurological: Alert and Oriented x 3 Result Diagrams: 07/16/17 06:22 07/16/17 06:22 Assess/Plan/Problems-Billing Mr Barkley is a 71 yo M who has a h/o throat cancer s/p chemo and XRT in 2016, now with recurrence who presented to the ER with c/o difficulty swallowing. - Patient Problems (1) Dysphagia Current Visit: Yes Status: Acute Code(s): R13.10 - DYSPHAGIA, UNSPECIFIED SNOMED Code(s): 46649422 Comment: Likely secondary to his radiation therapy last year and his large tumor. He states the dysphagia has become progressive and he is not able to swallow anything at this time. He is refusing all medications and food. Will ask for GI consult for PEG tube-he had a PEG in the past. (2) COPD (chronic obstructive pulmonary disease) Current Visit: Yes Status: Acute Code(s): J44.9 - CHRONIC OBSTRUCTIVE PULMONARY DISEASE, UNSPECIFIED SNOMED Code(s): 03360315 Comment: No signs of exacerbation at this time. Back to 2L O2 continuously. Will continue spiriva and methylprednisolone but decrease to q12h. Change to IV azithromycin due to inability to swallow. (3) HTN (hypertension) Current Visit: Yes Status: Acute Code(s): I10 - ESSENTIAL (PRIMARY) HYPERTENSION SNOMED Code(s): 06652416 Comment: BP is under good control. He has refused his oral meds today. Continue to follow BP. (4) DVT prophylaxis Current Visit: Yes Status: Acute Onset Date: 10/08/14 Code(s): VGN1503 - SNOMED Code(s): 324571334 Comment: sofi (5) Full code status Current Visit: Yes Status: Acute Onset Date: 10/08/14 Code(s): Z78.9 - OTHER SPECIFIED HEALTH STATUS SNOMED Code(s): 802652984
[2017-07-16] MEDS ORDERED: Azithromycin IV(*) 250 MG in NS 0.9% 250 ML* 250 ML IVPB SCH (15:00)
--- NOTE | 2017-07-16 21:29 | CONS ---
GASTROENTEROLOGY CONSULTATION DATE: 07/16/17 CONSULTING PHYSICIANS: Amanda Chacon DO; Joann Quigley MD, [facility]. REASON FOR CONSULTATION: Inability to swallow in a man resuming chemotherapy for laryngeal cancer. HISTORY OF PRESENT ILLNESS: This 71-year-old man with COPD, status post loss of a pulmonary lobe several years back due to a persisting infection, now has recurrence of laryngeal cancer. It was treated originally in late fall and he had a PEG installed at [facility] in June 2015, began using it in August 2015. He used it for 5 or 6 months and was discontinued in April 2016. More recently, he has been having trouble getting in adequate food and hydration. He has lost weight. Recurring cancer has been discovered and is said to surround his carotid artery. He is getting Xeloda as chemotherapy off weeks and on weeks. He has also been taking considerable prednisone. Here in the hospital, he had a videofluoroscopic exam last week that did not show obvious aspiration. There was no obvious esophageal lesion on the study. Esophagram was limited and did not show anything obstructing. Today, he has been brought food, but had refused it saying he just cannot swallow it. He lost 5 pounds at home. PAST MEDICAL HISTORY: 1. COPD. 2. Status post pulmonary lobectomy. 3. History of esophageal cancer - status post chemo and radiation in the [facility]. 4. History of PEG. MEDICATIONS: At home: 1. Levothyroxine 50 mcg. 2. Spiriva inhaler. 3. Symbicort inhaler. 4. Azithromycin. 5. Cefdinir. 6. Atenolol 50. 7. Albuterol inhaler p.r.n. FAMILY HISTORY: His mother of throat cancer at age 44. He does not know his father's history. SOCIAL HISTORY: He is . 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 He goes to the [facility] in [place]. REVIEW OF SYSTEMS: He has no history of MO, arrhythmia, syncope, seizures, or CVA. He has had no known cardiac disease. He has no history of liver disease. He has had no abdominal surgery other than his prior PEG. Colonoscopy status was not reviewed. There is no history of psoriasis or other skin disorder. No history of GI bleeding, hematuria, renal stones, bladder pathology. PHYSICAL EXAM: He is a cachetic man with temporal wasting. Somewhat breathy voice that his identifies as his baseline. He has no bulky disease in the neck. Breath sounds are diminished bilaterally. Heart sounds are regular. Abdomen is flat with the only defect being a healed fistula tract from his prior PEG in the left upper quadrant. Bowel sounds are positive. The abdomen is firm. Rectal: Deferred. Extremities show no edema. DIAGNOSTIC STUDIES/LAB DATA: Labs today, white count 6.4, hemoglobin 12.1, hematocrit 35, platelets 231. INR 6 days ago 0.94. BUN 12, creatinine 0.55, LFTs normal with albumin 3.9 yesterday. IMPRESSION: This 71-year-old man with recurrent laryngeal cancer (workup elsewhere) is weak and losing weight and he is functionally unable to get an adequate nutrition and hydration. There is no clear cut neurologic or obstructive issue causing this, but clearly he is failing. He has done better in the past with a PEG tube and it seems reasonable to do that now. There are circumstances raising the risk pertinently his prednisone and the expectation that his esophagus is scarred and stiffer than before . This was discussed with the patient. Given his cachexia and chronic obstructive pulmonary disease , anesthesia assistance is requested. His Lovenox will be held for the procedure. [id number]/[facility] #: [id number] [facility] ISLANDRafal
[2017-07-16] MEDS ORDERED: PROCHLORPERAZINE INJ 5 MG/ML 2 ML VIAL ONE (21:47)
[2017-07-16] MEDS: PROCHLORPERAZINE INJ 5 MG/ML 2 ML VIAL IV PRN (21:50)
[2017-07-17] MEDS: Ketorolac INJ* 15 MG/ML 1 ML VIAL IV PUSH PRN ×2 (03:22→16:12)
[2017-07-17] MEDS: Levothyroxine TAB* 50 MCG TAB PO SCH (05:27)
[2017-07-17] MEDS: D5W 1/2 NS KCl 20 Meq 1000 ML* 1,000 ML IV SCH (08:16)
[2017-07-17] MEDS: methylPREDNISolone SOD 40 MG* 1 ML VIAL IV SCH ×2 (08:17→20:27)
[2017-07-17] MEDS: PROCHLORPERAZINE INJ 5 MG/ML 2 ML VIAL IV PRN ×2 (08:17→16:40)
[2017-07-17] MEDS: Enoxaparin(*) 30 MG/0.3 ML SYR SUBCUT SCH ×2 (08:17→08:22)
[2017-07-17] MEDS: Atorvastatin* 10 MG TAB PO SCH (08:22)
[2017-07-17] MEDS: Atenolol TAB* 25 MG PO SCH (08:22)
[2017-07-17] MEDS: Albuterol 2.5 MG/3 ML NEB.SOL* (0.083%) INH PRN (08:42)
[2017-07-17] MEDS: Tiotropium CAP.INH* CAP.INH/18 MCG (USE ORDER SET !) INH SCH (08:44)
[2017-07-17] MEDS ORDERED: Azithromycin IV* 250 MG in NS 0.9% 250 ML* 250 ML IVPB SCH (09:00)
--- NOTE | 2017-07-17 09:11 | PN ---
Subjective Date of Service: 07/17/17 Interval History: Pt states he is feeling terrible. He again complains of the inability to swallow and shortness of breath. He states he is incredibly winded and fatigued just getting to the side of the bed to sit and urinate. Family History: Unchanged from Admission Social History: Unchanged from Admission Past Medical History: Unchanged from Admission Objective Active Medications: Albuterol (Ventolin 2.5 Mg/3 Ml Neb.Celina*) 2.5 mg INH Q6H PRN PRN Reason: SHORTNESS OF BREATH Last Admin: 07/17/17 08:42 Dose: 2.5 mg Atenolol (Tenormin Tab*) 50 mg PO DAILY [facility] Last Admin: 07/17/17 08:22 Dose: Not Given Atorvastatin Calcium (Lipitor*) 10 mg PO DAILY [facility] Last Admin: 07/17/17 08:22 Dose: Not Given Enoxaparin Sodium (Lovenox(*)) 30 mg SUBCUT Q24H [facility] Last Admin: 07/17/17 08:22 Dose: Not Given Potassium Chloride/Dextrose (D5w 1/2 Ns Kcl 20 Meq 1000 Ml*) 1,000 mls @ 125 mls/hr IV PER RATE [facility] Last Admin: 07/17/17 08:16 Dose: 125 mls/hr Azithromycin 250 mg/ Sodium (Chloride) 250 mls @ 250 mls/hr IVPB Q24H [facility] Stop: 07/17/17 11:00 Last Admin: 07/16/17 14:48 Dose: 250 mls/hr Azithromycin 250 mg/ Sodium (Chloride) 250 mls @ 250 mls/hr IVPB Q24H [facility] Ketorolac Tromethamine (Toradol Inj*) 15 mg IV PUSH Q6H PRN PRN Reason: PAIN Last Admin: 07/17/17 03:22 Dose: 15 mg Levothyroxine Sodium (Synthroid Tab*) 50 mcg PO 0600 [facility] Last Admin: 07/17/17 05:27 Dose: Not Given Methylprednisolone Sodium Succinate (Solu-Medrol 40 Mg) 40 mg IV Q12H [facility] Last Admin: 07/17/17 08:17 Dose: 40 mg Morphine Sulfate (Morphine Inj (Syringe)*) 2 mg IV Q4H PRN PRN Reason: PAIN - MILD Prochlorperazine Edisylate (Compazine Inj*) 10 mg IV Q6H PRN PRN Reason: NAUSEA/VOMITING Last Admin: 07/17/17 08:17 Dose: 10 mg Tiotropium [place] (Spiriva Cap.Inh*) 1 cap INH DAILY [facility] Last Admin: 07/17/17 08:44 Dose: 1 cap Vital Signs - 8 hr 07/17/17 07/17/17 03:28 08:35 Temperature 97.3 F Pulse Rate 69 80 Respiratory 19 Rate Blood Pressure 128/78 (mmHg) O2 Sat by Pulse 98 98 Oximetry Oxygen Devices in Use Now: Nasal Cannula Appearance: Elderly cachectic male sitting up in bed, NAD Eyes: No Scleral Icterus Ears/Nose/Mouth/Throat: Mucous Membranes Moist Respiratory: Symmetrical Chest Expansion and Respiratory Effort, - - clear on inspiration, coarse expiratory breath sounds Abdominal: NL Sounds; No Tenderness; No Distention Extremities: No Clubbing, Cyanosis Skin: No Rash or Ulcers, No Nodules or Sclerosis Neurological: Alert and Oriented x 3 Result Diagrams: 07/16/17 06:22 07/16/17 06:22 Assess/Plan/Problems-Billing Mr Barkley is a 71 yo M who has a h/o throat cancer s/p chemo and XRT in 2016, now with recurrence who presented to the ER with c/o difficulty swallowing. - Patient Problems (1) Dysphagia Current Visit: Yes Status: Acute Code(s): R13.10 - DYSPHAGIA, UNSPECIFIED SNOMED Code(s): 71929808 Comment: Likely secondary to his radiation therapy last year and his large tumor. Plan is for PEG tube to be placed today. Will ask for nutrition to weigh in on tube feed rate recommendations. PT will need to follow up with his primary oncologist after discharge. Will also place a palliative care consult. (2) COPD (chronic obstructive pulmonary disease) Current Visit: Yes Status: Acute Code(s): J44.9 - CHRONIC OBSTRUCTIVE PULMONARY DISEASE, UNSPECIFIED SNOMED Code(s): 89862315 Comment: No signs of exacerbation at this time. Back to 2L O2 continuously. Will continue spiriva and methylprednisolone q12h. Continue azithromycin IV while not taking in oral medications. (3) HTN (hypertension) Current Visit: Yes Status: Acute Code(s): I10 - ESSENTIAL (PRIMARY) HYPERTENSION SNOMED Code(s): 47596820 Comment: BP is under good control off medications. Will continue to monitor. (4) DVT prophylaxis Current Visit: Yes Status: Acute Onset Date: 10/08/14 Code(s): MJV9606 - SNOMED Code(s): 203130999 Comment: víctorx (5) Full code status Current Visit: Yes Status: Acute Onset Date: 10/08/14 Code(s): Z78.9 - OTHER SPECIFIED HEALTH STATUS SNOMED Code(s): 862042052
[2017-07-17] MEDS: Morphine INJ* 2 MG/ML 1 ML SYRINGE (TWO MG - NEW SYRINGE VERSION) IV PRN ×2 (10:16→19:43)
[2017-07-17] MEDS ORDERED: Albuterol 2.5 MG/3 ML NEB.SOL* (0.083%) ONE (12:59)
[2017-07-17] MEDS ORDERED: ZOSYN 3.375 GM x ONE DOSE over 30 miuntes IVPB ×2 (13:30)
[2017-07-17] MEDS ORDERED: Etomidate* 2 MG/ML 10 ML VIAL ONE (13:52)
[2017-07-17] MEDS ORDERED: Pantoprazole IV* 40 MG IV ONE (14:00)
[2017-07-17] MEDS ORDERED: Succinylcholine* 20 MG/ML 10 ML VIAL ONE (15:38)
[2017-07-17] MEDS ORDERED: Phenylephrine IV* 40 MCG/ML 10 ML SYRINGE ONE (15:38)
[2017-07-17] MEDS: NS 0.9% 1000 ML* 1,000 ML IV SCH (17:58)
[2017-07-17] MEDS: Pantoprazole DRIP 80 MG in 100 mL @ 8 MG/HR IVPB SCH (17:59)
[2017-07-17] MEDS ORDERED: AZITHROMYCIN IVPB SCH (18:42)
[2017-07-17] MEDS ORDERED: D5W IVPB SCH (18:42)
[2017-07-17] MEDS: Azithromycin IV* 250 MG in NS 0.9% 250 ML* 250 ML IVPB SCH (20:16)
[2017-07-18] MEDS: Pantoprazole DRIP 80 MG in 100 mL @ 8 MG/HR IVPB SCH ×2 (03:43→13:53)
[2017-07-18] MEDS: Morphine INJ* 2 MG/ML 1 ML SYRINGE (TWO MG - NEW SYRINGE VERSION) IV PRN ×3 (05:24→20:32)
[2017-07-18] MEDS: Levothyroxine TAB* 50 MCG TAB PO SCH (05:30)
[2017-07-18 06:50] LABS: Hematocrit 36 % (42-52); Hemoglobin 12.2 g/dl (14.0-18.0); Mean Corpuscular HGB Conc 34 g/dl (31-36); Mean Corpuscular Hemoglobin 35 pg (27-31); Mean Corpuscular Volume 101 fL (80-94); Mean Platelet Volume 8 um3 (7.4-10.4); Platelet Count 204 10^3/ul (150-450); Red Blood Count 3.53 10^6/ul (4.0-5.4); Red Cell Distribution Width 14 % (10.5-15); White Blood Count 12.9 10^3/ul (3.5-10.8)
--- NOTE | 2017-07-18 06:56 | PRO ---
DATE: 07/17/17 - ROOM #415 REFERRING PHYSICIAN: Amanda Chacon DO * PROCEDURE: Upper gastrointestinal endoscopy and percutaneous gastrostomy placement. 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 He is having trouble eating and loosing weight. He has essentially refused to try to eat meals. The results of an esophagram and video fluoroscopic swallowing evaluation were not terribly, bad somewhat incomplete. He had a PEG tube prior to his chemoradiation and would like to have another one. Informed consent was obtained including discussion of the stiffening and scarring affects of radiation with the possibility of being unable to perform the procedure. Case was discussed on consecutive days with Dr. Coleman, anesthesia. ENDOSCOPIST: Dr. Escoto. MEDICATIONS: Anesthesia per Dr. Clive Coleman. FINDINGS: He was brought to the operating room. Zosyn was given preoperatively. Lovenox that he had been given was held that day. He was intubated and was lying supine. EGD: Larynx - Not seen independently with the endotracheal tube in place. Esophagus - Easily entered, and there was caked medication material at the cricopharyngeus and just below it where there seemed to be some mild focal dilation. There was no stenosis per se and no exophytic tumor, obvious scar or stricture in that location. The upper esophagus was widely patent. A little further down in the esophagus, there did seem to be some stiffening and restriction to the esophageal lumen, but there was no focal stricture. There appeared to be a little bit of adherent bright secretions or pill debris. There were no erosions in the esophagus. The EJ junction at 38 was a little bit loose, but again no acid erosion. Stomach - Generally normal mucosa, in the cardia, fundus, body and antrum. A pit from the prior gastrostomy site was seen high in the fundus. A transillumination site was identified in the midgastric body. Finger indentation was established. The antrum appeared normal. Duodenum - The proximal 2 cm above were normal and then there was extensive eroded changes in the distal bulb with ulcerations and hemorrhagic bases. The deep erosive ulcerative change was extensive. There was no single fresh clot or active bleeding. Passing beyond this 3 cm zone, there was then normal mucosa in the distal second and third portion of the duodenum. Going back to the stomach, the finger indentation was again established and the patient's skin was prepped, anesthetized, a small incision made horizontally and a PEG done in standard pull fashion. There were no complications. Followup endoscopy did show some minimal irritation at the cricopharyngeus, though no active bleeding. There were a couple of linear tears in the distal esophagus at about 32 and 36 cm. There was no deep injury. The PEG was seen appropriately loosely snug in the mid body anterior wall with the external distance about 22 mm. The scope was withdrawn and the PEG adjusted and dressed. IMPRESSION: 1. Mild esophageal scarring - Minimal dilation from the effects of this procedure. 2. Ineffective esophageal peristalsis - Pill debris trapped in the esophagus. 3. Duodenal ulcers - Protonix drip is ordered, and twice a day PPI therapy is certainly indicated for a month and then daily chronically thereafter. 4. Recurring laryngeal cancer - No bulky disease seen with this exam. 5. Percutaneous gastrostomy - Placed without immediate complications. [id number]/[facility] #: [id number] [facility]
[2017-07-18 07:12] LABS: EGFR Non-African American 179.5 (>60)
[2017-07-18] MEDS: Tiotropium CAP.INH* CAP.INH/18 MCG (USE ORDER SET !) INH SCH (08:05)
[2017-07-18] MEDS: NS 0.9% 1000 ML* 1,000 ML IV SCH (08:40)
[2017-07-18] MEDS: methylPREDNISolone SOD 40 MG* 1 ML VIAL IV SCH ×2 (08:41→20:28)
[2017-07-18] MEDS: Enoxaparin(*) 30 MG/0.3 ML SYR SUBCUT SCH (08:41)
[2017-07-18] MEDS: PROCHLORPERAZINE INJ 5 MG/ML 2 ML VIAL IV PRN ×2 (08:43→16:43)
[2017-07-18] MEDS ORDERED: Azithromycin IV* 250 MG in NS 0.9% 250 ML* 250 ML IVPB SCH (09:00)
--- NOTE | 2017-07-18 09:44 | PN ---
Subjective Date of Service: 07/18/17 Interval History: Pt is feeling fine post PEG placement but is still upset that he can not swallow. I tried to explain we placed the PEG as it is felt he will not be able to reliably swallow going forward. He c/o dry mouth and throat and this is bothering him. He has no significant pain at the PEG site. His does not think he will be able to go home as he is more weak and he can not care for himself. Family History: Unchanged from Admission Social History: Unchanged from Admission Past Medical History: Unchanged from Admission Objective Active Medications: Albuterol (Ventolin 2.5 Mg/3 Ml Neb.Celina*) 2.5 mg INH Q6H PRN PRN Reason: SHORTNESS OF BREATH Last Admin: 07/17/17 08:42 Dose: 2.5 mg Atenolol (Tenormin Tab*) 50 mg PO DAILY [facility] Last Admin: 07/17/17 08:22 Dose: Not Given Atorvastatin Calcium (Lipitor*) 10 mg PO DAILY [facility] Last Admin: 07/17/17 08:22 Dose: Not Given Enoxaparin Sodium (Lovenox(*)) 30 mg SUBCUT Q24H [facility] Last Admin: 07/18/17 08:41 Dose: 30 mg Pantoprazole Sodium 80 mg/ (Sodium Chloride) 100 mls @ 10 mls/hr IVPB Q10H [facility] PRN Reason: Protocol Last Admin: 07/18/17 03:43 Dose: 10 mls/hr Sodium Chloride (Ns 0.9% 1000 Ml*) 1,000 mls @ 75 mls/hr IV PER RATE [facility] Last Admin: 07/18/17 08:40 Dose: 75 mls/hr Azithromycin 250 mg/ Sodium (Chloride) 250 mls @ 250 mls/hr IVPB 2030 [facility] Last Admin: 07/17/17 20:16 Dose: 250 mls/hr Influenza Virus Vaccine (Fluarix *Quad* 2016-18*) 0.5 ml IM .ONCE ONE Stop: 07/18/17 10:01 Ketorolac Tromethamine (Toradol Inj*) 15 mg IV PUSH Q6H PRN PRN Reason: PAIN Last Admin: 07/17/17 16:12 Dose: 15 mg Levothyroxine Sodium (Synthroid Tab*) 50 mcg PO 0600 [facility] Last Admin: 07/18/17 05:30 Dose: Not Given Methylprednisolone Sodium Succinate (Solu-Medrol 40 Mg) 40 mg IV Q12H [facility] Last Admin: 07/18/17 08:41 Dose: 40 mg Morphine Sulfate (Morphine Inj (Syringe)*) 2 mg IV Q4H PRN PRN Reason: PAIN - MILD Last Admin: 07/18/17 05:24 Dose: 2 mg Prochlorperazine Edisylate (Compazine Inj*) 10 mg IV Q6H PRN PRN Reason: NAUSEA/VOMITING Last Admin: 07/18/17 08:43 Dose: 10 mg Tiotropium [place] (Spiriva Cap.Inh*) 1 cap INH DAILY [facility] Last Admin: 07/18/17 08:05 Dose: 1 cap Vital Signs - 8 hr 07/18/17 07/18/17 07/18/17 02:19 03:43 05:24 Temperature Pulse Rate 80 Respiratory 20 19 Rate Blood Pressure 128/73 (mmHg) O2 Sat by Pulse 100 99 Oximetry 07/18/17 07/18/17 07/18/17 06:52 07:19 08:00 Temperature 97.6 F Pulse Rate 75 Respiratory 20 15 20 Rate Blood Pressure 150/78 (mmHg) O2 Sat by Pulse 100 100 Oximetry 07/18/17 07/18/17 08:07 08:08 Temperature Pulse Rate 75 Respiratory 18 Rate Blood Pressure (mmHg) O2 Sat by Pulse 100 100 Oximetry Oxygen Devices in Use Now: Nasal Cannula Appearance: Elderly cachectic male sitting up in bed, NAD Result Diagrams: 07/18/17 06:44 07/18/17 06:44 Assess/Plan/Problems-Billing Mr Barkley is a 71 yo M who has a h/o throat cancer s/p chemo and XRT in 2016, now with recurrence who presented to the ER with c/o difficulty swallowing. - Patient Problems (1) Dysphagia Current Visit: Yes Status: Acute Code(s): R13.10 - DYSPHAGIA, UNSPECIFIED SNOMED Code(s): 48965696 Comment: Likely secondary to his radiation therapy last year and his large tumor. Plan is for PEG tube to be placed today. Will ask for nutrition to weigh in on tube feed rate recommendations. PT will need to follow up with his primary oncologist after discharge. Will also place a palliative care consult. (2) COPD (chronic obstructive pulmonary disease) Current Visit: Yes Status: Acute Code(s): J44.9 - CHRONIC OBSTRUCTIVE PULMONARY DISEASE, UNSPECIFIED SNOMED Code(s): 72278947 Comment: No signs of exacerbation at this time. Back to 2L O2 continuously. Will continue spiriva and methylprednisolone q12h. Continue azithromycin IV while not taking in oral medications. (3) HTN (hypertension) Current Visit: Yes Status: Acute Code(s): I10 - ESSENTIAL (PRIMARY) HYPERTENSION SNOMED Code(s): 69642720 Comment: BP is under good control off medications. Will continue to monitor. (4) DVT prophylaxis Current Visit: Yes Status: Acute Onset Date: 10/08/14 Code(s): NMI2418 - SNOMED Code(s): 805907953 Comment: lovenox (5) Full code status Current Visit: Yes Status: Acute Onset Date: 10/08/14 Code(s): Z78.9 - OTHER SPECIFIED HEALTH STATUS SNOMED Code(s): 407354585
[2017-07-18] MEDS ORDERED: Influenza VAC *QUAD* 2017-18* 0.5 ML SYRINGE IM ONE (10:00)
[2017-07-18] MEDS: Ketorolac INJ* 15 MG/ML 1 ML VIAL IV PUSH PRN ×2 (10:48→23:28)
[2017-07-18] MEDS: Albuterol 2.5 MG/3 ML NEB.SOL* (0.083%) INH PRN ×2 (13:00→19:38)
[2017-07-18] MEDS: Atenolol TAB* 25 MG PO SCH (13:24)
[2017-07-18] MEDS: Pantoprazole IV* 80 MG in NS 0.9% 250 ML* 250 ML IVPB SCH (13:55)
[2017-07-18] MEDS: Atorvastatin* 10 MG TAB PO SCH (16:56)
[2017-07-18] MEDS: Azithromycin IV* 250 MG in NS 0.9% 250 ML* 250 ML IVPB SCH (20:28)
--- NOTE | 2017-07-18 22:19 | CONS ---
CC: Dr. Palmer Friend; Dr. Joann Quigley, [facility] * PALLIATIVE CARE CONSULTATION REPORT: DATE OF CONSULT: 07/18/17 PRIMARY CARE PHYSICIAN: Dr. Estela Desir. REFERRING PHYSICIAN FOR CONSULT: Amanda Chacon DO HOSPITAL COURSE: This is a 71-year-old male with past medical history of laryngeal carcinoma, status post chemo and radiation in 2016, who now has recurrence of the tumor encasing his right carotid, on oral chemotherapy. The patient presented to the emergency room on 07/15/17 with weakness and shortness of breath. He states he has been having difficulty for the past 2 weeks with increasing shortness of breath and not being able to tolerate any p.o. The patient's initial weight when he was first diagnosed was 150 pounds. His weight was 128 pounds when they removed the PEG tube the first time back in April of 2016 and now he weighs 96 pounds. He is not really able to eat or drink anything. He still continues to have head and chest pain and as mentioned shortness of breath. He started oral chemotherapy about a month ago. He is supposed to take it for 2 weeks on, 2 weeks off. He states he has some nausea with it. He is again progressively weak and having difficulty getting out of bed. The is concerned about caring for him at home in his deconditioned state. When asked about prognosis with his recurrence, they state that the chemo may slow down the tumor growth but there are no guarantees and that he is not a surgical candidate due to the fact that the tumor is encasing around his carotid artery. When asked if the patient was aware of what hospice was, he was not. I went over in depth regarding hospice services and what it remains and what it provides. Unfortunately, the patient gets his oncology services at [facility]. I did put a call into Dr. Palmer, who is also involved in his care and waiting a call back to get a better understanding of his prognosis; per my understanding, it is rather poor. Otherwise, remaining review of systems is negative. In the emergency room, the patient had imaging, labs. He was consulted by GI, who recommended PEG tube placement, which was done on 07/17/17. He is about to start tube feeds this evening. PAST MEDICAL HISTORY: 1. Diagnosed with laryngeal carcinoma in 2016, status post chemo and radiation , now with recurrence on oral chemotherapy, unclear of the medication, what appears to be Xeloda, followed by Dr. Quigley and Dr. Palmer at [facility]. 2. History of COPD, on 2 L nasal cannula. 3. Hyperlipidemia. 4. Hypertension. 5. 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 6. History of cyst removal of the spine. 7. Hypothyroidism. INPATIENT MEDICATIONS: 1. Albuterol 2.5 mg inhaled every 6 hours as needed. 2. Atorvastatin 10 mg daily. 3. Azithromycin 250 mg daily. 4. Lovenox 30 mg subcu daily. 5. Toradol 50 mg q.6 hours as needed. 6. Levothyroxine 50 mcg daily. 7. Methylprednisolone 40 mg IV q.12 hours. 8. Morphine 2 mg q.4 hours as needed. 9. Normal saline 75 cc an hour. 10. Pantoprazole 80 mg q.10 hours. 11. Compazine 10 mg q.6 hours as needed. 12. Tiotropium 1 cap inhaled daily. ALLERGIES: No known drug allergies. FAMILY HISTORY: The patient's mother from throat cancer at age 44, father's history unknown. SOCIAL HISTORY: As mentioned, the patient lives at home with his , who is his healthcare proxy. He has 2 grown children from a prior marriage. He is a 50-pack- year smoker, quit in 2009. No alcohol or illicit drug use. His MOLST form which I do not see but is confirmed by the patient that he is a DNR/DNI. REVIEW OF SYSTEMS: A 14-point review of systems as mentioned in the HPI reviewed, otherwise as mentioned in the HPI. PHYSICAL EXAM: Vitals: Temp 97.6, pulse rate 85, respiratory rate 16, oxygen saturation 99% on 2 L, blood pressure 102/65. General: Frail, elderly cachectic male, in no acute distress. His is at the bedside. Head: Normocephalic. Pupils equal and reactive, anicteric. Oropharynx: Mucous membranes are moist. Neck: No nuchal rigidity, full range of motion. Mass is noted on the right lateral neck. Respiratory: Diminished breath sounds, prolonged expiratory phase with bilateral expiratory wheezing. No increased work of breathing. Cardiac: Regular rate and rhythm. Soft systolic murmur throughout. Abdomen: Soft, cachectic abdomen. G-tube in place with no surrounding drainage. Extremities: Trace pretibial edema. Neurological: Alert and oriented x3. No focal neurologic deficits. LABORATORY DATA: White count 12.9, hemoglobin 12.2, hematocrit 36, platelets 204. Sodium 134, potassium 4.1, chloride 102, bicarb 27, BUN 12, creatinine 0.46 , albumin is 3.9. ASSESSMENT AND PLAN: This is a 71-year-old male with past medical history of recurrent laryngeal carcinoma, who presented with weakness and shortness of breath with inability to take any p.o., status post PEG tube. The patient just started oral chemotherapy, did state he had some nausea. He seems to have significantly declined with a poor performance status. I did put out a call to his oncologist, to discuss his prognosis and make sure they are aware of his admission here and to understand if there was any benefit in continuing his chemotherapy and it seems that with his decline, his performance status, he will no longer be a candidate for chemotherapy and would be a candidate for hospice with the principal diagnosis of throat cancer, secondary diagnosis malnutrition. It does not appear that the is able to care for him at home even with hospice services, so I would recommend looking into fpc placement and will await until Oncology calls back to put in for hospice referral. Family seemed to want to process it more before confirming that this is what they in fact wanted to pursue. Thank you for this consultation. PATIENT TIME: Greater than 90 minutes was spent in the consultation, more than half the time was spent in patient contact. [id number]/[facility] #: [id number] [facility]
[2017-07-19] MEDS: Pantoprazole IV* 80 MG in NS 0.9% 250 ML* 250 ML IVPB SCH ×3 (00:23→23:17)
[2017-07-19] MEDS: NS 0.9% 1000 ML* 1,000 ML IV SCH ×2 (00:23→13:42)
[2017-07-19] MEDS: Morphine INJ* 2 MG/ML 1 ML SYRINGE (TWO MG - NEW SYRINGE VERSION) IV PRN ×7 (01:07→22:55)
[2017-07-19] MEDS: Albuterol 2.5 MG/3 ML NEB.SOL* (0.083%) INH PRN ×4 (01:18→23:48)
[2017-07-19] MEDS: Levothyroxine TAB* 50 MCG TAB PO SCH (05:22)
[2017-07-19] MEDS: Tiotropium CAP.INH* CAP.INH/18 MCG (USE ORDER SET !) INH SCH (07:37)
[2017-07-19] MEDS: PROCHLORPERAZINE INJ 5 MG/ML 2 ML VIAL IV PRN (09:30)
[2017-07-19] MEDS: Atorvastatin* 10 MG TAB PO SCH (10:45)
[2017-07-19] MEDS: methylPREDNISolone SOD 40 MG* 1 ML VIAL IV SCH ×2 (10:46→21:00)
[2017-07-19] MEDS: Enoxaparin(*) 30 MG/0.3 ML SYR SUBCUT SCH (10:47)
[2017-07-19] MEDS ORDERED: Pantoprazole IV* 40 MG ONE (10:51)
--- NOTE | 2017-07-19 12:16 | PN ---
Subjective Date of Service: 07/19/17 Interval History: Pt states he is not feeling well. He had a couple episodes of SOB overnight that were relieved with morphine. He had some mild upper abdominal pain but states it is now going away. He has had intermittent nausea that is relieved with an antiemetic. Family History: Unchanged from Admission Social History: Unchanged from Admission Past Medical History: Unchanged from Admission Objective Active Medications: Albuterol (Ventolin 2.5 Mg/3 Ml Neb.Celina*) 2.5 mg INH Q6H PRN PRN Reason: SHORTNESS OF BREATH Last Admin: 07/19/17 07:37 Dose: 2.5 mg Atorvastatin Calcium (Lipitor*) 10 mg PO DAILY [facility] Last Admin: 07/19/17 10:45 Dose: 10 mg Enoxaparin Sodium (Lovenox(*)) 30 mg SUBCUT Q24H [facility] Last Admin: 07/19/17 10:47 Dose: 30 mg Sodium Chloride (Ns 0.9% 1000 Ml*) 1,000 mls @ 75 mls/hr IV PER RATE [facility] Last Admin: 07/19/17 00:23 Dose: 75 mls/hr Azithromycin 250 mg/ Sodium (Chloride) 250 mls @ 250 mls/hr IVPB 2030 [facility] Last Admin: 07/18/17 20:28 Dose: 250 mls/hr Pantoprazole Sodium 80 mg/ (Sodium Chloride) 250 mls @ 25 mls/hr IVPB Q10H [facility] PRN Reason: Protocol Last Admin: 07/19/17 11:28 Dose: 25 mls/hr Ketorolac Tromethamine (Toradol Inj*) 15 mg IV PUSH Q6H PRN PRN Reason: PAIN Last Admin: 07/18/17 23:28 Dose: 15 mg Levothyroxine Sodium (Synthroid Tab*) 50 mcg PO 0600 [facility] Last Admin: 07/19/17 05:22 Dose: 50 mcg Methylprednisolone Sodium Succinate (Solu-Medrol 40 Mg) 40 mg IV Q12H [facility] Last Admin: 07/19/17 10:46 Dose: 40 mg Morphine Sulfate (Morphine Inj (Syringe)*) 2 mg IV Q4H PRN PRN Reason: PAIN - MILD Last Admin: 07/19/17 09:31 Dose: 2 mg Prochlorperazine Edisylate (Compazine Inj*) 10 mg IV Q6H PRN PRN Reason: NAUSEA/VOMITING Last Admin: 07/19/17 09:30 Dose: 10 mg Tiotropium [place] (Spiriva Cap.Inh*) 1 cap INH DAILY [facility] Last Admin: 07/19/17 07:37 Dose: 1 cap Vital Signs - 8 hr 07/19/17 07/19/17 07/19/17 05:22 06:24 07:17 Temperature 98.9 F Pulse Rate 88 Respiratory 22 18 18 Rate Blood Pressure 141/85 (mmHg) O2 Sat by Pulse 100 Oximetry 07/19/17 07/19/17 07/19/17 07:37 08:00 09:31 Temperature Pulse Rate 86 Respiratory 18 18 16 Rate Blood Pressure (mmHg) O2 Sat by Pulse 99 Oximetry 07/19/17 07/19/17 11:28 11:30 Temperature 99.2 F Pulse Rate 87 Respiratory 22 16 Rate Blood Pressure 129/74 (mmHg) O2 Sat by Pulse 98 Oximetry Oxygen Devices in Use Now: Nasal Cannula Appearance: Elderly cachectic male sitting up in bed, NAD Eyes: No Scleral Icterus Ears/Nose/Mouth/Throat: Mucous Membranes Moist Respiratory: Symmetrical Chest Expansion and Respiratory Effort, Clear to Auscultation - anteriorly Cardiovascular: NL Sounds; No Murmurs; No JVD, RRR, No Edema Abdominal: NL Sounds; No Tenderness; No Distention, - - PEG in place Extremities: No Clubbing, Cyanosis Skin: No Rash or Ulcers, No Nodules or Sclerosis Neurological: Alert and Oriented x 3 Result Diagrams: 07/18/17 06:44 07/18/17 06:44 Assess/Plan/Problems-Billing Mr Barkley is a 71 yo M who has a h/o throat cancer s/p chemo and XRT in 2016, now with recurrence who presented to the ER with c/o difficulty swallowing. - Patient Problems (1) Dysphagia Current Visit: Yes Status: Acute Code(s): R13.10 - DYSPHAGIA, UNSPECIFIED SNOMED Code(s): 67891490 Comment: Likely secondary to his radiation therapy last year and his large tumor. Pt had PEG placed yesterday and will therefore start low dose tube feeding at 20ml/hr. Palliative care saw the patient and he and his will contemplate hospice. (2) COPD (chronic obstructive pulmonary disease) Current Visit: Yes Status: Acute Code(s): J44.9 - CHRONIC OBSTRUCTIVE PULMONARY DISEASE, UNSPECIFIED SNOMED Code(s): 80798847 Comment: No signs of exacerbation at this time. Back to 2L O2 continuously. Change to PT steroids and azithromycin. (3) HTN (hypertension) Current Visit: Yes Status: Acute Code(s): I10 - ESSENTIAL (PRIMARY) HYPERTENSION SNOMED Code(s): 27572436 Comment: BP is under good control off medications. Will continue to monitor. (4) DVT prophylaxis Current Visit: Yes Status: Acute Onset Date: 10/08/14 Code(s): YQC6646 - SNOMED Code(s): 525269433 Comment: lovenox (5) Full code status Current Visit: Yes Status: Acute Onset Date: 10/08/14 Code(s): Z78.9 - OTHER SPECIFIED HEALTH STATUS SNOMED Code(s): 438584827
[2017-07-19] MEDS: Azithromycin IV* 250 MG in NS 0.9% 250 ML* 250 ML IVPB SCH (21:06)
[2017-07-20] MEDS: Morphine INJ* 2 MG/ML 1 ML SYRINGE (TWO MG - NEW SYRINGE VERSION) IV PRN ×6 (04:32→22:01)
[2017-07-20] MEDS: Ketorolac INJ* 15 MG/ML 1 ML VIAL IV PUSH PRN (04:32)
[2017-07-20] MEDS: NS 0.9% 1000 ML* 1,000 ML IV SCH ×2 (04:32→19:42)
[2017-07-20] MEDS: Albuterol 2.5 MG/3 ML NEB.SOL* (0.083%) INH PRN (07:54)
[2017-07-20] MEDS: Tiotropium CAP.INH* CAP.INH/18 MCG (USE ORDER SET !) INH SCH (07:54)
[2017-07-20] MEDS: Atorvastatin* 10 MG TAB PO SCH (08:14)
[2017-07-20] MEDS: Levothyroxine TAB* 50 MCG TAB PO SCH (08:14)
[2017-07-20] MEDS: Enoxaparin(*) 30 MG/0.3 ML SYR SUBCUT SCH (08:25)
[2017-07-20] MEDS: methylPREDNISolone SOD 40 MG* 1 ML VIAL IV SCH (08:26)
[2017-07-20] MEDS: Pantoprazole IV* 80 MG in NS 0.9% 250 ML* 250 ML IVPB SCH ×2 (09:18→22:05)
--- NOTE | 2017-07-20 16:50 | PN ---
Subjective Date of Service: 07/20/17 Interval History: Pt is feeling ok currently. He denies any pain or SOB at this time. He has not had a BM. He is tolerating his tube feed. Family History: Unchanged from Admission Social History: Unchanged from Admission Past Medical History: Unchanged from Admission Objective Active Medications: Albuterol (Ventolin 2.5 Mg/3 Ml Neb.Celina*) 2.5 mg INH Q6H PRN PRN Reason: SHORTNESS OF BREATH Last Admin: 07/20/17 07:54 Dose: 2.5 mg Atorvastatin Calcium (Lipitor*) 10 mg PO DAILY [facility] Last Admin: 07/20/17 08:14 Dose: 10 mg Enoxaparin Sodium (Lovenox(*)) 30 mg SUBCUT Q24H [facility] Last Admin: 07/20/17 08:25 Dose: 30 mg Sodium Chloride (Ns 0.9% 1000 Ml*) 1,000 mls @ 75 mls/hr IV PER RATE [facility] Last Admin: 07/20/17 04:32 Dose: 75 mls/hr Azithromycin 250 mg/ Sodium (Chloride) 250 mls @ 250 mls/hr IVPB 2030 [facility] Last Admin: 07/19/17 21:06 Dose: 250 mls/hr Pantoprazole Sodium 80 mg/ (Sodium Chloride) 250 mls @ 25 mls/hr IVPB Q10H [facility] PRN Reason: Protocol Last Admin: 07/20/17 09:18 Dose: 25 mls/hr Ketorolac Tromethamine (Toradol Inj*) 15 mg IV PUSH Q6H PRN PRN Reason: PAIN Last Admin: 07/20/17 04:32 Dose: 15 mg Levothyroxine Sodium (Synthroid Tab*) 50 mcg PO 0600 [facility] Last Admin: 07/20/17 08:14 Dose: 50 mcg Methylprednisolone Sodium Succinate (Solu-Medrol 40 Mg) 40 mg IV Q12H [facility] Last Admin: 07/20/17 08:26 Dose: 40 mg Morphine Sulfate (Morphine Inj (Syringe)*) 2 mg IV Q2H PRN PRN Reason: PAIN - MILD Last Admin: 07/20/17 15:27 Dose: 2 mg Prochlorperazine Edisylate (Compazine Inj*) 10 mg IV Q6H PRN PRN Reason: NAUSEA/VOMITING Last Admin: 07/19/17 09:30 Dose: 10 mg Tiotropium [place] (Spiriva Cap.Inh*) 1 cap INH DAILY [facility] Last Admin: 07/20/17 07:54 Dose: 1 cap Vital Signs - 8 hr 07/20/17 07/20/17 07/20/17 11:44 12:01 15:07 Temperature 97.5 F Pulse Rate 81 Respiratory 20 16 16 Rate Blood Pressure 142/68 (mmHg) O2 Sat by Pulse 100 Oximetry 07/20/17 07/20/17 07/20/17 15:27 16:00 16:15 Temperature 97.6 F Pulse Rate 77 Respiratory 16 20 Rate Blood Pressure 134/68 (mmHg) O2 Sat by Pulse 100 100 Oximetry Oxygen Devices in Use Now: Nasal Cannula Appearance: Elderly male lying in bed, NAD Eyes: No Scleral Icterus Ears/Nose/Mouth/Throat: Mucous Membranes Moist Respiratory: Symmetrical Chest Expansion and Respiratory Effort, Clear to Auscultation - anteriorly Cardiovascular: NL Sounds; No Murmurs; No JVD, RRR, No Edema Abdominal: NL Sounds; No Tenderness; No Distention Extremities: No Clubbing, Cyanosis Skin: No Rash or Ulcers, No Nodules or Sclerosis Neurological: Alert and Oriented x 3 Result Diagrams: 07/18/17 06:44 07/18/17 06:44 Assess/Plan/Problems-Billing Mr Barkley is a 71 yo M who has a h/o throat cancer s/p chemo and XRT in 2016, now with recurrence who presented to the ER with c/o difficulty swallowing. - Patient Problems (1) Dysphagia Current Visit: Yes Status: Acute Code(s): R13.10 - DYSPHAGIA, UNSPECIFIED SNOMED Code(s): 01855981 Comment: Likely secondary to his radiation therapy last year and his large tumor. Pt had PEG placed, tube feeds have been increased 10ml/shift and he is currently at 40ml/hr. Pt and his are agreeable to hospice but it will need to be at a facility. (2) COPD (chronic obstructive pulmonary disease) Current Visit: Yes Status: Acute Code(s): J44.9 - CHRONIC OBSTRUCTIVE PULMONARY DISEASE, UNSPECIFIED SNOMED Code(s): 84939239 Comment: No signs of exacerbation at this time. Back to 2L O2 continuously. Change to PT steroids and azithromycin. (3) HTN (hypertension) Current Visit: Yes Status: Acute Code(s): I10 - ESSENTIAL (PRIMARY) HYPERTENSION SNOMED Code(s): 28174311 Comment: Continue to hold antihypertensives as pt is going to be signing on to hospice. (4) DVT prophylaxis Current Visit: Yes Status: Acute Onset Date: 10/08/14 Code(s): IYA6421 - SNOMED Code(s): 433059633 Comment: lovenox (5) Full code status Current Visit: Yes Status: Acute Onset Date: 10/08/14 Code(s): Z78.9 - OTHER SPECIFIED HEALTH STATUS SNOMED Code(s): 694478003
[2017-07-20] MEDS: Lansoprazole susp Kit 3 MG/ML (30 MG = 10 ML) G TUBE SCH (20:58)
[2017-07-21] MEDS: Morphine INJ* 2 MG/ML 1 ML SYRINGE (TWO MG - NEW SYRINGE VERSION) IV PRN ×5 (03:18→23:15)
[2017-07-21] MEDS: Levothyroxine TAB* 50 MCG TAB PO SCH (06:12)
[2017-07-21] MEDS: Albuterol 2.5 MG/3 ML NEB.SOL* (0.083%) INH PRN ×2 (07:27→14:50)
[2017-07-21] MEDS: Tiotropium CAP.INH* CAP.INH/18 MCG (USE ORDER SET !) INH SCH (07:29)
[2017-07-21] MEDS: PROCHLORPERAZINE INJ 5 MG/ML 2 ML VIAL IV PRN (08:50)
[2017-07-21] MEDS: Azithromycin 100 MG/5 ML SUSP* 100 MG/5 ML BTL G TUBE SCH (08:53)
[2017-07-21] MEDS: predniSONE TAB* 20 MG G TUBE SCH (08:53)
[2017-07-21] MEDS: Atorvastatin* 10 MG TAB G TUBE SCH (08:53)
[2017-07-21] MEDS: Enoxaparin(*) 30 MG/0.3 ML SYR SUBCUT SCH (08:54)
[2017-07-21] MEDS: NS 0.9% 1000 ML* 1,000 ML IV SCH (09:33)
[2017-07-21] MEDS: Lansoprazole susp Kit 3 MG/ML (30 MG = 10 ML) G TUBE SCH ×2 (09:33→20:39)
--- NOTE | 2017-07-21 17:32 | PN ---
Subjective Date of Service: 07/21/17 Interval History: Pt is feeling ok currently. He has had intermittent SOB and pain managed well with morphine. His states the patient said he wishes this was all over. Family History: Unchanged from Admission Social History: Unchanged from Admission Past Medical History: Unchanged from Admission Objective Active Medications: Albuterol (Ventolin 2.5 Mg/3 Ml Neb.Celina*) 2.5 mg INH Q6H PRN PRN Reason: SHORTNESS OF BREATH Last Admin: 07/21/17 14:50 Dose: 2.5 mg Atorvastatin Calcium (Lipitor*) 10 mg G TUBE DAILY [facility] Last Admin: 07/21/17 08:53 Dose: 10 mg Azithromycin (Zithromax 100 Mg/5 Ml Susp*) 250 mg G TUBE DAILY [facility] Last Admin: 07/21/17 08:53 Dose: 250 mg Enoxaparin Sodium (Lovenox(*)) 30 mg SUBCUT Q24H [facility] Last Admin: 07/21/17 08:54 Dose: 30 mg Sodium Chloride (Ns 0.9% 1000 Ml*) 1,000 mls @ 75 mls/hr IV PER RATE [facility] Last Admin: 07/21/17 09:33 Dose: 75 mls/hr Lansoprazole (Lansoprazole Susp Kit) 30 mg G TUBE BID [facility] Last Admin: 07/21/17 09:33 Dose: 30 mg Levothyroxine Sodium (Synthroid Tab*) 50 mcg PO 0600 [facility] Last Admin: 07/21/17 06:12 Dose: 50 mcg Morphine Sulfate (Morphine Oral.Soln 10 Mg*) 10 mg G TUBE Q2H PRN PRN Reason: pain or air hunger Morphine Sulfate (Morphine Inj (Syringe)*) 2 mg IV Q4H PRN PRN Reason: PAIN - MILD Last Admin: 07/21/17 16:45 Dose: 2 mg Prednisone (Deltasone Tab*) 40 mg G TUBE DAILY [facility] Last Admin: 07/21/17 08:53 Dose: 40 mg Prochlorperazine Edisylate (Compazine Inj*) 10 mg IV Q6H PRN PRN Reason: NAUSEA/VOMITING Last Admin: 07/21/17 08:50 Dose: 10 mg Tiotropium [place] (Spiriva Cap.Inh*) 1 cap INH DAILY [facility] Last Admin: 07/21/17 07:29 Dose: 1 cap Vital Signs - 8 hr 07/21/17 07/21/17 07/21/17 12:18 14:53 16:45 Pulse Rate 94 Respiratory 18 17 18 Rate O2 Sat by Pulse 99 Oximetry Oxygen Devices in Use Now: Nasal Cannula Appearance: Cachectic elderly male sitting up in bed, NAD Eyes: No Scleral Icterus Ears/Nose/Mouth/Throat: Mucous Membranes Moist Respiratory: Symmetrical Chest Expansion and Respiratory Effort, Clear to Auscultation Cardiovascular: NL Sounds; No Murmurs; No JVD, RRR, No Edema Abdominal: NL Sounds; No Tenderness; No Distention Extremities: No Clubbing, Cyanosis Skin: No Nodules or Sclerosis, - - tiny ulceration overlying R neck tumor now weeping serous fluid Neurological: Alert and Oriented x 3 Result Diagrams: 07/18/17 06:44 07/18/17 06:44 Assess/Plan/Problems-Billing Mr Barkley is a 71 yo M who has a h/o throat cancer s/p chemo and XRT in 2016, now with recurrence who presented to the ER with c/o difficulty swallowing. - Patient Problems (1) Dysphagia Current Visit: Yes Status: Acute Code(s): R13.10 - DYSPHAGIA, UNSPECIFIED SNOMED Code(s): 42183030 Comment: Likely secondary to his radiation therapy last year and his large tumor. Pt had PEG placed, tube feeds have been increased and he is currently at 50ml/hr. Pt and his are agreeable to hospice but it will need to be at a facility. It is not clear he will want to continue on tube feeds. (2) COPD (chronic obstructive pulmonary disease) Current Visit: Yes Status: Acute Code(s): J44.9 - CHRONIC OBSTRUCTIVE PULMONARY DISEASE, UNSPECIFIED SNOMED Code(s): 95761157 Comment: No signs of exacerbation at this time. Back to 2L O2 continuously. Continue steroids and azithromycin for chronic MAC infection. (3) HTN (hypertension) Current Visit: Yes Status: Acute Code(s): I10 - ESSENTIAL (PRIMARY) HYPERTENSION SNOMED Code(s): 72558827 Comment: Continue to hold antihypertensives as pt is going to be signing on to hospice. (4) DVT prophylaxis Current Visit: Yes Status: Acute Onset Date: 10/08/14 Code(s): UGZ6637 - SNOMED Code(s): 526430857 Comment: lovenox (5) Full code status Current Visit: Yes Status: Acute Onset Date: 10/08/14 Code(s): Z78.9 - OTHER SPECIFIED HEALTH STATUS SNOMED Code(s): 008108409
[2017-07-21] MEDS: Morphine ORAL.SOLN 10 mg* 2 MG/ML UDC 5 ml G TUBE PRN (20:39)
[2017-07-22] MEDS: NS 0.9% 1000 ML* 1,000 ML IV SCH (01:28)
[2017-07-22] MEDS: Morphine INJ* 2 MG/ML 1 ML SYRINGE (TWO MG - NEW SYRINGE VERSION) IV PRN ×7 (03:57→23:11)
[2017-07-22] MEDS: Morphine ORAL.SOLN 10 mg* 2 MG/ML UDC 5 ml G TUBE PRN (05:35)
[2017-07-22] MEDS: Levothyroxine TAB* 50 MCG TAB PO SCH (05:35)
[2017-07-22] MEDS: Tiotropium CAP.INH* CAP.INH/18 MCG (USE ORDER SET !) INH SCH (08:39)
[2017-07-22] MEDS: Enoxaparin(*) 30 MG/0.3 ML SYR SUBCUT SCH ×2 (09:48→10:46)
[2017-07-22] MEDS: Atorvastatin* 10 MG TAB G TUBE SCH (09:48)
[2017-07-22] MEDS: predniSONE TAB* 20 MG G TUBE SCH (09:48)
[2017-07-22] MEDS: Lansoprazole susp Kit 3 MG/ML (30 MG = 10 ML) G TUBE SCH ×2 (10:17→20:12)
[2017-07-22] MEDS: Azithromycin 100 MG/5 ML SUSP* 100 MG/5 ML BTL G TUBE SCH (10:46)
--- NOTE | 2017-07-22 17:04 | PN ---
Subjective Date of Service: 07/22/17 Interval History: Patient continues to state he feels horrible. Patient states he get short of breath with any activity, but was able to stand up with PT. Patient states that he would like the tube feeds to be stopped. Patient states he is in significant pain, but that the Morphine helps. Patient deneis CP, N/V, abdominal pain, F/C, or other pain. Family History: Unchanged from Admission Social History: Unchanged from Admission Past Medical History: Unchanged from Admission Objective Active Medications: Albuterol (Ventolin 2.5 Mg/3 Ml Neb.Celina*) 2.5 mg INH Q6H PRN PRN Reason: SHORTNESS OF BREATH Last Admin: 07/21/17 14:50 Dose: 2.5 mg Azithromycin (Zithromax 100 Mg/5 Ml Susp*) 250 mg G TUBE DAILY [facility] Last Admin: 07/22/17 10:46 Dose: 250 mg Lansoprazole (Lansoprazole Susp Kit) 30 mg G TUBE BID [facility] Last Admin: 07/22/17 10:17 Dose: 30 mg Levothyroxine Sodium (Synthroid Tab*) 50 mcg PO 0600 [facility] Last Admin: 07/22/17 05:35 Dose: 50 mcg Morphine Sulfate (Morphine Oral.Soln 10 Mg*) 10 mg G TUBE Q2H PRN PRN Reason: pain or air hunger Last Admin: 07/22/17 05:35 Dose: 10 mg Morphine Sulfate (Morphine Inj (Syringe)*) 2 mg IV Q2H PRN PRN Reason: PAIN - MILD Last Admin: 07/22/17 14:56 Dose: 2 mg Prednisone (Deltasone Tab*) 40 mg G TUBE DAILY [facility] Last Admin: 07/22/17 09:48 Dose: 40 mg Prochlorperazine Edisylate (Compazine Inj*) 10 mg IV Q6H PRN PRN Reason: NAUSEA/VOMITING Last Admin: 07/21/17 08:50 Dose: 10 mg Tiotropium [place] (Spiriva Cap.Inh*) 1 cap INH DAILY [facility] Last Admin: 07/22/17 08:39 Dose: 1 cap Vital Signs - 8 hr 07/22/17 07/22/17 07/22/17 09:44 11:13 12:13 Temperature 98.6 F Pulse Rate 100 Respiratory 16 18 18 Rate Blood Pressure 118/71 (mmHg) O2 Sat by Pulse 97 Oximetry 07/22/17 07/22/17 07/22/17 12:23 14:18 14:56 Temperature Pulse Rate Respiratory 17 17 18 Rate Blood Pressure (mmHg) O2 Sat by Pulse Oximetry 07/22/17 07/22/17 15:39 16:00 Temperature Pulse Rate 95 Respiratory 16 Rate Blood Pressure 121/74 (mmHg) O2 Sat by Pulse 96 96 Oximetry Oxygen Devices in Use Now: Nasal Cannula Appearance: Patient is an emaciated 71yo male who appears older than stated age and is sitting in the bed in NAD. Eyes: No Scleral Icterus, PERRLA Ears/Nose/Mouth/Throat: NL Teeth, Lips, Gums, Clear Oropharnyx, Mucous Membranes Moist Neck: Trachea Midline, - - Mass with discharge overlying right carotid. Stable per family. Respiratory: Symmetrical Chest Expansion and Respiratory Effort, - - Course Rhonchi throughout. Cardiovascular: NL Sounds; No Murmurs; No JVD, RRR, No Edema Abdominal: NL Sounds; No Tenderness; No Distention, No Hepatosplenomegaly, - - PEG tube in place. Lymphatic: No Cervical Adenopathy Extremities: No Edema, No Clubbing, Cyanosis Skin: No Nodules or Sclerosis Neurological: Alert and Oriented x 3, - - Severe weakness throughout without focality. CN II-XII intact. Result Diagrams: 07/18/17 06:44 07/18/17 06:44 Assess/Plan/Problems-Billing Mr Barkley is a 71 yo M who has a h/o throat cancer s/p chemo and XRT in 2016, now with recurrence who presented to the ER with c/o difficulty swallowing. Patient and family have elected to go for hospice and today patient requested tube feeds be discontinued. - Patient Problems (1) Dysphagia Current Visit: Yes Status: Acute Code(s): R13.10 - DYSPHAGIA, UNSPECIFIED SNOMED Code(s): 66228876 Comment: Likely secondary to his radiation therapy last year and his large tumor. Pt had PEG placed. Tube feeds discontinued per patient. Pt and his are agreeable to hospice at a facility. (2) COPD (chronic obstructive pulmonary disease) Current Visit: Yes Status: Acute Code(s): J44.9 - CHRONIC OBSTRUCTIVE PULMONARY DISEASE, UNSPECIFIED SNOMED Code(s): 32402493 Comment: No signs of exacerbation at this time. Back to 2L O2 continuously. Continue steroids and azithromycin for chronic MAC infection. Patient would like to continue these medications. (3) HTN (hypertension) Current Visit: Yes Status: Acute Code(s): I10 - ESSENTIAL (PRIMARY) HYPERTENSION SNOMED Code(s): 34095898 Comment: Continue to hold antihypertensives as pt is going to be signing on to hospice. (4) Dyslipidemia Current Visit: No Status: Chronic Priority: Medium Code(s): E78.5 - HYPERLIPIDEMIA, UNSPECIFIED SNOMED Code(s): 792366373 Comment: Lipitor stopped per patient preference. (5) DNR (do not resuscitate) Current Visit: Yes Status: Acute (6) DVT prophylaxis Current Visit: Yes Status: Acute Onset Date: 10/08/14 Code(s): FSO9956 - SNOMED Code(s): 241555039 Comment: Discontinued for patient comfort. Status and Disposition: Patient is admitted inpatient, will be discharged to a facility when available.
[2017-07-22] MEDS: Albuterol 2.5 MG/3 ML NEB.SOL* (0.083%) INH PRN (20:30)
[2017-07-23] MEDS: Morphine INJ* 2 MG/ML 1 ML SYRINGE (TWO MG - NEW SYRINGE VERSION) IV PRN ×2 (03:10→05:31)
[2017-07-23] MEDS: Albuterol 2.5 MG/3 ML NEB.SOL* (0.083%) INH PRN (03:24)
[2017-07-23] MEDS: Levothyroxine TAB* 50 MCG TAB PO SCH (05:31)
[2017-07-23] MEDS ORDERED: LORazepam INJ* 2 MG/ML 1 ML VIAL IV PUSH PRN ×2 (07:31→07:32)
[2017-07-23] MEDS: Morphine INJ* 4 MG/ML 1 ML CARPUJECT IV PRN ×5 (07:46→23:59)
[2017-07-23] MEDS: Tiotropium CAP.INH* CAP.INH/18 MCG (USE ORDER SET !) INH SCH (07:55)
[2017-07-23] MEDS: Azithromycin 100 MG/5 ML SUSP* 100 MG/5 ML BTL G TUBE SCH (11:08)
[2017-07-23] MEDS: Lansoprazole susp Kit 3 MG/ML (30 MG = 10 ML) G TUBE SCH ×2 (11:08→20:31)
[2017-07-23] MEDS: predniSONE TAB* 20 MG G TUBE SCH (11:08)
--- NOTE | 2017-07-23 15:34 | PN ---
Subjective Date of Service: 07/23/17 Interval History: Per nursing staff, patient was complaining of significantly increased air hunger and anxiety this morning. Patient received ativan and increased morphine and was significantly sedated when examined. Unable to do ROS. Patient complained of pain when examined later, but still very drowsy. Family History: Unchanged from Admission Social History: Unchanged from Admission Past Medical History: Unchanged from Admission Objective Active Medications: Albuterol (Ventolin 2.5 Mg/3 Ml Neb.Celina*) 2.5 mg INH Q6H PRN PRN Reason: SHORTNESS OF BREATH Last Admin: 07/23/17 03:24 Dose: 2.5 mg Azithromycin (Zithromax 100 Mg/5 Ml Susp*) 250 mg G TUBE DAILY [facility] Last Admin: 07/23/17 11:08 Dose: 250 mg Lansoprazole (Lansoprazole Susp Kit) 30 mg G TUBE BID [facility] Last Admin: 07/23/17 11:08 Dose: 30 mg Levothyroxine Sodium (Synthroid Tab*) 50 mcg PO 0600 [facility] Last Admin: 07/23/17 05:31 Dose: 50 mcg Lorazepam (Ativan Inj*) 1 mg IV PUSH Q4H PRN PRN Reason: ANXIETY Last Admin: 07/23/17 07:46 Dose: 1 mg Morphine Sulfate (Morphine Oral.Soln 10 Mg*) 10 mg G TUBE Q2H PRN PRN Reason: pain or air hunger Last Admin: 07/22/17 05:35 Dose: 10 mg Morphine Sulfate (Morphine Inj (Syringe)*) 4 mg IV Q2H PRN PRN Reason: PAIN - MILD Last Admin: 07/23/17 12:56 Dose: 4 mg Prednisone (Deltasone Tab*) 40 mg G TUBE DAILY [facility] Last Admin: 07/23/17 11:08 Dose: 40 mg Prochlorperazine Edisylate (Compazine Inj*) 10 mg IV Q6H PRN PRN Reason: NAUSEA/VOMITING Last Admin: 07/21/17 08:50 Dose: 10 mg Tiotropium [place] (Spiriva Cap.Inh*) 1 cap INH DAILY [facility] Last Admin: 07/23/17 07:55 Dose: 1 cap Vital Signs - 8 hr 07/23/17 07/23/17 07/23/17 07:46 07:56 10:23 Respiratory 19 15 Rate O2 Sat by Pulse 97 Oximetry 07/23/17 12:56 Respiratory 16 Rate O2 Sat by Pulse Oximetry Oxygen Devices in Use Now: Nasal Cannula Appearance: Patient is a 71yo male who appears older than stated age and is sitting in the bed in NAD. Eyes: No Scleral Icterus, PERRLA Ears/Nose/Mouth/Throat: NL Teeth, Lips, Gums, - - Dry Mucous membranes with crusting, pharyngeal erythema. Neck: Trachea Midline, - - Draining ulcer on right side of neck which is very tender to palpation. Respiratory: - - Increased respiratory effort, course rhonchi throughout. Cardiovascular: NL Sounds; No Murmurs; No JVD, RRR, No Edema Abdominal: No Hepatosplenomegaly, - - hypoactive, pain with palpation around feeding tube. Lymphatic: No Cervical Adenopathy Extremities: No Edema, No Clubbing, Cyanosis Skin: No Nodules or Sclerosis Result Diagrams: 07/18/17 06:44 07/18/17 06:44 Assess/Plan/Problems-Billing Mr Barkley is a 71 yo M who has a h/o throat cancer s/p chemo and XRT in 2016, now with recurrence who presented to the ER with c/o difficulty swallowing. Patient and family have elected to go for hospice and today patient requested tube feeds be discontinued. - Patient Problems (1) Dysphagia Current Visit: Yes Status: Acute Code(s): R13.10 - DYSPHAGIA, UNSPECIFIED SNOMED Code(s): 22158403 Comment: Likely secondary to his radiation therapy last year and his large tumor. Pt had PEG placed. Tube feeds discontinued per patient. Pt and his are agreeable to hospice at a facility. (2) COPD (chronic obstructive pulmonary disease) Current Visit: Yes Status: Acute Code(s): J44.9 - CHRONIC OBSTRUCTIVE PULMONARY DISEASE, UNSPECIFIED SNOMED Code(s): 89678201 Comment: No signs of exacerbation at this time. Back to 2L O2 continuously. Continue steroids and azithromycin for chronic MAC infection. Patient would like to continue these medications. (3) HTN (hypertension) Current Visit: Yes Status: Acute Code(s): I10 - ESSENTIAL (PRIMARY) HYPERTENSION SNOMED Code(s): 13153946 Comment: Continue to hold antihypertensives as pt is going to be signing on to hospice. (4) Dyslipidemia Current Visit: No Status: Chronic Priority: Medium Code(s): E78.5 - HYPERLIPIDEMIA, UNSPECIFIED SNOMED Code(s): 354043901 Comment: Lipitor stopped per patient preference. (5) DNR (do not resuscitate) Current Visit: Yes Status: Acute (6) DVT prophylaxis Current Visit: Yes Status: Acute Onset Date: 10/08/14 Code(s): CWU2826 - SNOMED Code(s): 058978779 Comment: Discontinued for patient comfort. Status and Disposition: Patient is admitted inpatient, will be discharged to a facility when available.
[2017-07-24] MEDS: Morphine INJ* 4 MG/ML 1 ML CARPUJECT IV PRN ×3 (02:46→08:45)
[2017-07-24] MEDS: Levothyroxine TAB* 50 MCG TAB PO SCH (04:41)
[2017-07-24] MEDS: Tiotropium CAP.INH* CAP.INH/18 MCG (USE ORDER SET !) INH SCH (08:22)
[2017-07-24] MEDS: Lansoprazole susp Kit 3 MG/ML (30 MG = 10 ML) G TUBE SCH ×2 (08:38→11:44)
[2017-07-24] MEDS: Azithromycin 100 MG/5 ML SUSP* 100 MG/5 ML BTL G TUBE SCH ×2 (08:38→11:44)
[2017-07-24] MEDS: predniSONE TAB* 20 MG G TUBE SCH ×2 (08:38→11:44)
[2017-07-24] MEDS ORDERED: Morphine INJ* 4 MG/ML 1 ML CARPUJECT IV PRN (10:43)
[2017-07-24] MEDS ORDERED: Morphine INJ* 2 MG/ML 1 ML SYRINGE (TWO MG - NEW SYRINGE VERSION) IV PRN (11:01)
[2017-07-24] MEDS: Morphine ORAL CONCENTRATE* 5 MG/0.25 ML ORAL.SYRIN SL PRN ×3 (14:45→20:50)
--- NOTE | 2017-07-24 14:56 | PN ---
Progress Note - Progress Note Date of Service: 07/24/17 Note: Patient and were seen today in follow up of their desire for discontinuation of PEG feedings and opting for comfort care. The patient is willing to try SL Roxanol and just had a dose of 20 mg SL with good efffect. He and his understand he has a prognosis of a week or more, and have elected to be transported to the [facility] residence for end of life care. We are attempting to reach the patient's oncologist Dr. Green at [place] for a hospice order; if that MD is not available I will pick pack worker this patient's care for the duration. He has hyperdynamic heart sounds, distant breath sounds, scaphoid abdomen with G tube in place, concentrated urine output reduced in volume, and weeping right anterior cervical/submandibular masses that are likely neoplastic , no evidence of fistula. We will arrange for transport to [facility] either this afternoon or tomorrow morning.
--- NOTE | 2017-07-24 17:00 | PN ---
Subjective Date of Service: 07/24/17 Interval History: Patient in severe pain intermittently with response to Morphine IV and SL. would like like him to have any more Ativan if avoidable. Patient and family updated on prognosis and agree to transport to hospice residence in AM for end of life care. Patient states he wants to discontinue all his other possibly life preserving therapies. Family History: Unchanged from Admission Social History: Unchanged from Admission Past Medical History: Unchanged from Admission Objective Active Medications: Albuterol (Ventolin 2.5 Mg/3 Ml Neb.Celina*) 2.5 mg INH Q6H PRN PRN Reason: SHORTNESS OF BREATH Last Admin: 07/23/17 03:24 Dose: 2.5 mg Lorazepam (Ativan Inj*) 1 mg IV PUSH Q4H PRN PRN Reason: ANXIETY Last Admin: 07/23/17 07:46 Dose: 1 mg Morphine Sulfate (Morphine Oral.Soln 10 Mg*) 10 mg G TUBE Q2H PRN PRN Reason: pain or air hunger Last Admin: 07/22/17 05:35 Dose: 10 mg Morphine Sulfate (Morphine Inj (Syringe)*) 4 mg IV Q1H PRN PRN Reason: PAIN - MILD Last Admin: 07/24/17 11:10 Dose: 4 mg Morphine Sulfate (Morphine Oral Concentrate*) 20 mg SL Q1H PRN PRN Reason: PAIN Last Admin: 07/24/17 14:45 Dose: 20 mg Prochlorperazine Edisylate (Compazine Inj*) 10 mg IV Q6H PRN PRN Reason: NAUSEA/VOMITING Last Admin: 07/21/17 08:50 Dose: 10 mg Vital Signs - 8 hr 07/24/17 07/24/17 07/24/17 10:45 11:10 11:25 Temperature 99.7 F Pulse Rate 86 Respiratory 18 17 20 Rate Blood Pressure 115/71 (mmHg) O2 Sat by Pulse 96 Oximetry 07/24/17 07/24/17 07/24/17 12:54 14:45 16:52 Temperature Pulse Rate Respiratory 15 17 Rate Blood Pressure (mmHg) O2 Sat by Pulse 94 Oximetry Oxygen Devices in Use Now: Nasal Cannula Appearance: Patient is an emaciated 71yo male who appears older than stated age and is sitting in the bed with increased WOB. Eyes: No Scleral Icterus, PERRLA Ears/Nose/Mouth/Throat: NL Teeth, Lips, Gums, Clear Oropharnyx, Mucous Membranes Moist Neck: Trachea Midline, - - Mass on right side of neck which has dried discharge. Respiratory: Symmetrical Chest Expansion and Respiratory Effort, - - Course Rhonchi throughout. Cardiovascular: NL Sounds; No Murmurs; No JVD, RRR, No Edema Abdominal: NL Sounds; No Tenderness; No Distention, No Hepatosplenomegaly, - - PEG tube in place. Lymphatic: No Cervical Adenopathy Extremities: No Edema, No Clubbing, Cyanosis Neurological: Alert and Oriented x 3, - - CN II-XII intact. Result Diagrams: 07/18/17 06:44 07/18/17 06:44 Assess/Plan/Problems-Billing Mr Barkley is a 71 yo M who has a h/o throat cancer s/p chemo and XRT in 2015, now with recurrence who presented to the ER with c/o difficulty swallowing. Patient and family have elected to go for hospice and today patient requested tube feeds be discontinued. - Patient Problems (1) Need for comfort care Current Visit: Yes Status: Acute Code(s): UIJ2146 - SNOMED Code(s): 415848223 Comment: Patient states that he would like his life to be over as soon as possible. Appreciate Palliative input. Patient in very significant pain and Sublingual morphine started at 20mg Q1H with good effect. Discontinue vital signs and other interruptions to sleep. Transport to hospice residence in AM. (2) Dysphagia Current Visit: Yes Status: Acute Code(s): R13.10 - DYSPHAGIA, UNSPECIFIED SNOMED Code(s): 74607719 Comment: Likely secondary to his radiation therapy last year and his large tumor. Pt had PEG placed. Tube feeds discontinued per patient. Pt and his are agreeable to hospice at a facility. Accepted in Hospice residence, will transport in AM. (3) COPD (chronic obstructive pulmonary disease) Current Visit: Yes Status: Acute Code(s): J44.9 - CHRONIC OBSTRUCTIVE PULMONARY DISEASE, UNSPECIFIED SNOMED Code(s): 39606256 Comment: No signs of exacerbation at this time. Back to 2L O2 continuously. Patient requested all his medications be discontinued so as not to prolong life. (4) HTN (hypertension) Current Visit: Yes Status: Acute Code(s): I10 - ESSENTIAL (PRIMARY) HYPERTENSION SNOMED Code(s): 60691640 Comment: Continue to hold antihypertensives as pt is going to be signing on to hospice. (5) Dyslipidemia Current Visit: No Status: Chronic Priority: Medium Code(s): E78.5 - HYPERLIPIDEMIA, UNSPECIFIED SNOMED Code(s): 392385895 Comment: Lipitor stopped per patient preference. (6) DNR (do not resuscitate) Current Visit: Yes Status: Acute (7) DVT prophylaxis Current Visit: Yes Status: Acute Onset Date: 10/08/14 Code(s): WEH6275 - SNOMED Code(s): 229810802 Comment: Discontinued for patient comfort. Status and Disposition: Patient is admitted inpatient, Discharge to Hospice Residence in AM.
[2017-07-24 23:53] VITALS: BP 125/70
[2017-07-25] MEDS: Morphine ORAL CONCENTRATE* 5 MG/0.25 ML ORAL.SYRIN SL PRN ×5 (00:33→11:32)
--- NOTE | 2017-07-25 12:35 | DS ---
DISCHARGE SUMMARY: DATE OF ADMISSION: 07/15/17 DATE OF DISCHARGE: 07/25/17 PRIMARY CARE PROVIDER: None. MY ATTENDING WHILE IN HOSPITAL: Barbara Kaiser MD * (DICTATED BY RAYNA ESPINOZA) PRIMARY DISCHARGE DIAGNOSES: 1. Laryngeal cancer. 2. Dysphagia. 3. Weakness. 4. End-of-life care. SECONDARY DISCHARGE DIAGNOSES: 1. Chronic obstructive pulmonary disease. 2. Dyslipidemia. 3. Hypertension. 5. Atypical mycobacterial infection of the lung. STUDIES DONE WHILE IN THE HOSPITAL: Chest x-ray from 07/15/17 shows hyperinflated lungs consistent with COPD and chronic interstitial disease. No changes since 07/10/17. Electrocardiogram from 07/15/17 shows normal sinus rhythm, left ventricular hypertrophy, peaked T-waves, early repolarization in V3 and V4, normal axis, QTc of 478, premature atrial complexes, no other abnormalities, consistent with previous studies from 07/11/17. Esophagus x-ray from 07/15/17 read as normal esophagram without gross evidence for presence of intrinsic mucosal lesion in the esophagus or esophagitis. CONSULTING PROVIDERS: Dr. Davin Escoto of Gastroenterology, Dr. Leonie Nguyen and Dr. Renita Acuna of Palliative Medicine. MEDICATIONS AT DISCHARGE: 1. Morphine concentrate 20 mg sublingually q.1 hour as needed. 2. Zofran ODT 8 mg q.4 hours as needed. 3. Ventolin nebulizer 2.5 mg per 3 mL, 2.5 mg inhalation q.6 hours as needed. MEDICATIONS DISCONTINUED AT DISCHARGE: 1. Atenolol 50 mg p.o. daily. 2. Spiriva 1 cap inhalation daily. 3. Simvastatin 20 mg p.o. daily. 4. Symbicort 1 puff inhalation b.i.d. 5. Albuterol (Ventolin) 1 to 2 puffs inhalation q.4 hours as needed. 6. Compazine 10 mg p.o. q.4 hours as needed. 7. Zithromax 250 mg p.o. daily. 8. Levothyroxine 50 mcg p.o. daily. 9. Cefdinir 300 mg p.o. b.i.d. 10. Prednisone 50 mg p.o. daily. NEW MEDICATIONS AT DISCHARGE: 1. Morphine. 2. Zofran. 3. Albuterol. HOSPITAL COURSE: This is a brief summary of the patient's presentation. For more details, please see the history and physical from Luz Elena Baugh NP, from . In brief, the patient is a 71-year-old male with past medical history significant for the above, who presents with weakness and fatigue. Patient was recently admitted to the hospital from 07/10/17 to 07/11/17 for shortness of breath and COPD exacerbation. Patient was discharged to home with prednisone and cefdinir. Patient had increased difficulties swallowing. Patient had no complaints. He started feeling dry. Patient also felt short of breath and had to be increased to 4 L of oxygen. Patient was treated for ongoing COPD exacerbation with Solu-Medrol, cefdinir, azithromycin. Patient was also given IV fluids for probable dehydration from his inability to swallow. Patient felt poorly. He said that he could not swallow even water and felt like it got stuck in his throat with pain. Patient was refusing all medications and food. Due to this, Gastroenterology was consulted for a PEG tube. Patient previously had a PEG tube on 07/17/17 without complications. Patient began Jevity tube feeds at that point. Patient was continued on Spiriva, azithromycin and Solu- Medrol. Patient's cefdinir was discontinued. On 07/18/17, patient was seen by Palliative Medicine, Dr. Leonie Nguyen, and his family elected and was deemed to be a candidate for hospice. The family at that time wanted to process the idea of hospice more, but later elected to have a consultation for that. Patient was started on tube feeding, which he tolerated, which he had pain with initially, but tolerated well later on. The patient was changed to oral steroids at that point for his COPD exacerbation. I was beginning to process to start to look for a facility for the patient to go to hospice. Patient stated that he was tired of living and being in pain. On 07/22/17, patient elected to stop his tube feeds; however, at that time, the patient wanted to continue with his respiratory treatments as he had for chronically. Patient elected to stop all other life prolonging treatments. On 07/23/17, patient was started on increased IV morphine and Ativan, and significantly sedated when he was examined, which was alarming to his , but patient recovered after Ativan had worn off. Patient at this time requested all his other medications be discontinued. He does not want anything that might possibly prolong his life including the flushes that went into his PEG tube along with his medications. On 07/24/17, patient's stated repeatedly that they did not want him to be in any more pain and they did not want this process to be drawn out, they want him to as soon as possible. Patient was accepted at the hospice residence, but was not able to be sent on 07/24/17. The plan was for discharge on 07/25/17. The patient had started on morphine q.20 mg sublingually as needed for pain which he tolerated well and was effective. Patient will be discharged to hospice on 07/25/17 with the attempt of comfort care. PHYSICAL EXAMINATION: General: Patient is a 71-year-old male who appears much older than stated age and sitting on the bed with significantly increased work of breathing, but no other stress. No vital signs available for the time before exam due to comfort care measures. HEENT: Head normocephalic, atraumatic. Sclerae anicteric. No conjunctival injection. Nasal and oral mucosa dry with crusting discharge. Neck: Supple. Tenderness over the left carotid. No lymphadenopathy. Weeping wound present on the right side of the neck. No carotid bruits auscultated. Cardiac: Tachycardic. No clicks, murmurs, gallops or rubs. Pulses +2 in the bilateral dorsalis pedis, posterior tibialis and radial areas. No edema noted in the bilateral lower extremities. Respiratory: Coarse rhonchi present throughout, worse than previous exam. Abdomen: Soft, nontender. PEG tube in place. Bowel sounds are present and hypoactive in all 4 quadrants. No abdominal bruits auscultated. No hepatosplenomegaly. Genitourinary: No suprapubic tenderness or CVA tenderness. Skin: Clean, dry and intact. Suppurating nodule on left neck. Dry skin. No other rash. Psychiatric: Pleasant and cooperative. Neuro: Cranial nerves II through XII grossly intact. No focal deficits. Alert and oriented x3. DISCHARGE PLAN: Patient will be discharged to hospice with sublingual morphine , atropine, albuterol and Zofran ODT are his only medications. The patient stated repeatedly that he does not want long, drawn out dying process, so focus will be entirely on comfort and managing patient's pain. Patient has no other concerns at this point, is in agreement. Patient should engage in activities as tolerated with the focus on comfort. Patient shall have comfort care diet with no restrictions; however, patient has significant difficulty swallowing. TIME SPENT: Approximately 50 minutes were spent on this discharge, 30 of which were spent [id number] with the patient obtaining history and physical and discussing treatment plan. RAYNA ESPINOZA [id number]/CPS #: [id number] DAVID
== END 2017-07-25 12:20 | disposition hospice, home (50) | DRG 147 ==
LOC: ED 06:11 → MEDTELE 08:30 → MED 09:53 → OBSVTOIN 07-16 16:08
PROVIDERS: ADMIT Internal Medicine; ATTEND Internal Medicine
PROC: 0DH63UZ Insertion of Feeding Device into Stomach, Percutaneous Approach (ICD-10-PCS; principal; 2017-07-16)
PROC: 3E0G76Z Introduction of Nutritional Substance into Upper GI, Via Natural or Artificial Opening (ICD-10-PCS; 2017-07-16)
DX: C32.9 Malignant neoplasm of larynx, unspecified (principal); R64 Cachexia; K22.2 Esophageal obstruction; E46 Unspecified protein-calorie malnutrition; J44.9 Chronic obstructive pulmonary disease, unspecified; Z99.81 Dependence on supplemental oxygen; A31.9 Mycobacterial infection, unspecified; Z68.1 Body mass index [BMI] 19.9 or less, adult; K26.9 Duodenal ulcer, unspecified as acute or chronic, without hemorrhage or perforation; Z85.01 Personal history of malignant neoplasm of esophagus; I10 Essential (primary) hypertension; Z90.2 Acquired absence of lung [part of]; Z87.891 Personal history of nicotine dependence; Z80.8 Family history of malignant neoplasm of other organs or systems; E03.9 Hypothyroidism, unspecified; E78.5 Hyperlipidemia, unspecified; Z66 Do not resuscitate; R11.0 Nausea; F41.9 Anxiety disorder, unspecified; F45.8 Other somatoform disorders; R19.2 Visible peristalsis; Z51.5 Encounter for palliative care; Z79.52 Long term (current) use of systemic steroids
CPT/HCPCS: 36415; 71010; 74220; 80048; 80053; 81003; 84134; 85025; 85027; 86140; 90686; 93005; 94640; 94760; 99283; A9270-GY; J0330; J0456; J0780; J1650; J1885; J2060; J2270; J2543; J2920; J2930; J3475; J7512; Q0164